=== PATIENT | female | born 1970 | race Caucasian/White ===

== ENCOUNTER → 2017-04-07 15:51 | Outpatient (CLI) | payer MEDICARE, MEDICAID, SELFPAY ==
--- NOTE | 2017-04-07 16:03 | MM_ITS ---
MM Dig screening mamm BI w/CAD CAD Screening COMPARISON: Digital mammograms 10/26/2014 and 02/06/2013 INDICATION: There is no personal or family history of breast cancer TECHNIQUE: Standard CC and MLO images were obtained. R2 CAD reviewed. FINDINGS: The breasts are composed primarily of fat with minimal scattered fibroglandular densities in each breast. There are tiny stable benign-appearing nodular densities near the axillary tails of each breast. There is no suspicious lesion and there are no suspicious microcalcifications. IMPRESSION: Fatty type breast parenchyma with no suspicious lesion seen BI-RADS Category: 2 Benign Finding(s) RECOMMENDED FOLLOW-UP: 1YR - 1 YEAR FOLLOW-UP (A letter has been sent to the patient regarding results of the study.)
== END ==
PROVIDERS: Family Provider Family Medicine; PCP Family Medicine; Visit Provider Nurse Practitioner Family
DX: Z12.31 Encounter for screening mammogram for malignant neoplasm of breast (principal)
CPT/HCPCS: 77067

== ENCOUNTER → 2017-10-01 13:11 | Outpatient (CLI) | payer MEDICARE, MEDICAID, SELFPAY | PROVIDERS: PCP Family Medicine; Visit Provider Family Medicine | DX: R40.0 Somnolence (principal); R06.83 Snoring; E66.9 Obesity, unspecified; G47.30 Sleep apnea, unspecified | CPT/HCPCS: G0399 ==

== ENCOUNTER → 2017-12-24 14:56 | Outpatient (CLI) | payer MEDICARE, MEDICAID, SELFPAY ==
--- NOTE | 2017-12-24 15:03 | XR_ITS ---
XR calcaneus RT min 2V CLINICAL INDICATION: Pain, heel pain ITS.REASON: TENDONITIS ORDERING PHYSICIAN: Cash Burton MD PATIENT AGE: 47 years Comparison: None FINDINGS: 3 views of the calcaneus show no fracture or dislocation. No lytic or blastic change. There is a fairly prominent calcaneal spur at 9 mm without obvious erosive change. IMPRESSION: Calcaneal spur otherwise negative right heel
== END ==
PROVIDERS: PCP Family Medicine; Visit Provider Family Medicine
DX: M76.61 Achilles tendinitis, right leg (principal)
CPT/HCPCS: 73650

== ENCOUNTER → 2018-04-12 15:47 | Outpatient (CLI) | payer MEDICARE, SELFPAY ==
--- NOTE | 2018-04-12 15:55 | MM_ITS ---
MM Dig screening mamm BI w/CAD CAD Screening COMPARISON: Digital mammograms with CAD 04/07/2017 and 10/26/2014 INDICATION: There is no personal or family history of breast cancer TECHNIQUE: Standard CC and MLO images were obtained. R2 CAD reviewed. FINDINGS: The breasts are composed primarily of fat. With minimal scattered fibro glandular densities in each breast. There is a mole marker left breast. There is a stable benign-appearing nodular density near the axillary tail left breast likely a low-lying node. There is no suspicious lesion and no suspicious microcalcifications. IMPRESSION: Fibrofatty parenchyma with no suspicious lesion seen BI-RADS Category: 2 Benign Finding(s) RECOMMENDED FOLLOW-UP: 1YR - 1 YEAR FOLLOW-UP (A letter has been sent to the patient regarding results of the study.)
== END ==
PROVIDERS: PCP Family Medicine; Visit Provider Nurse Practitioner Family
DX: Z12.31 Encounter for screening mammogram for malignant neoplasm of breast (principal)
CPT/HCPCS: 77067

== ENCOUNTER → 2018-05-18 13:36 | Outpatient (CLI) | payer MEDICARE, SELFPAY ==
--- NOTE | 2018-05-18 13:40 | XR_ITS ---
XR foot wt bearing LT 3V HISTORY: Left foot pain ITS.REASON: pain ORDERING PHYSICIAN: Rachel Covarrubias DPM PATIENT AGE: 47 years COMPARISON: None FINDINGS: No fracture or dislocation. No lytic or blastic change. There is normal mineralization.. There is flexion deformity of the second toe. A small calcaneal spurs present at 7 mm and there is a small enthesophyte at the Achilles region. IMPRESSION: Flexion deformity second toe
--- NOTE | 2018-05-18 13:40 | XR_ITS ---
XR foot wt bearing RT 3V HISTORY: ITS.REASON: pain ORDERING PHYSICIAN: Rachel Covarrubias DPM PATIENT AGE: 47 years COMPARISON: None FINDINGS: Minimal hypertrophic changes are present along the dorsal and proximal aspect of the navicular. Small calcaneal spur is noted at 7 mm. No fracture or dislocation. No lytic or blastic change. IMPRESSION: Mild degenerative changes of the navicular
== END ==
PROVIDERS: PCP Family Medicine; Visit Provider Podiatrist
DX: M79.672 Pain in left foot (principal); M79.671 Pain in right foot
CPT/HCPCS: 73630

== ENCOUNTER 2018-07-06 13:00 | Outpatient (RCR) | payer MEDICARE, MEDICAID, SELFPAY ==
--- NOTE | 2018-06-08 14:10 | HMH.PTOPEV ---
PT Outpatient Evaluation Rehab PT Outpatient Evaluation Start: 06/08/18 13:57 Freq: Status: Active Protocol: Document 06/08/18 13:58 DEDRA (Rec: 06/08/18 14:09 [email or web address] [id number]) Electronically Signed By Gabino Park, PT 06/08/18 13:58 Outpatient Therapy Subjective History Subjective History Patient is a 48 year old female presenting to outpatient PT with reports of R heel pain of insidious onset [facility]. Pt reports most recently taking a round of oral sterioids that have helped reduce symptom. Pt reports non-compliance with HEP given by MD. Most recent diagnostics indicate R foot/ ankle arthritis and sub- achilles bone spur. Comorbidities include elevated BMI, diabetes and chronic depression. Chief Complaint Pain,Stiff Symptom Type Ache,Sharp,Shooting Symptoms Relieved By Prescription Meds Symptoms Aggravated By Standing,Physical Activity, Walking Prior Functional Limitations None Current Functional Limitations Housework,Standing,Recreation Activity,Walking,Stairs, Balance Symptom Description Intermittent Level of pain today (0-10) 0 Pain scale - at its best (0-10) 0 Pain scale - at its worst (0-10) 6 Ankle/Foot Eval Gait Observation General Gait Pattern Observation Antalgic Gait,Decrease Weight Bear (R) Palpation Tenderness right Ankle/Foot Palpation Findings Tenderness Ankle/Foot Palpation Overall Comment distal/lateral achilles insertion ROM Ankle/Foot Dorsiflexion w/Knee Extended 0 Active Range Motion (degrees) Ankle/Foot Plantar Flexion Active Range 60 of Motion (degrees) Ankle/Foot Eversion Active Range of WNL Motion (degrees) Ankle/Foot Inversion Active Range of WNL Motion (degrees) Ankle/Foot ROM Limitations Soft Tissue Tightness Great Toe ROM Reason Not Measured Within Functional Limits MMT Ankle Dorsiflexion Strength Grade 5 Normal Ankle Plantarflexion Strength Grade 5 Normal Foot Eversion Strength Grade 5 Normal Foot Inversion Strength Grade 5 Normal Special Tests Ankle Anterior Drawer Test Negative Right Ankle Eversion Test Negative Right Ta
== END 2018-07-06 13:05 | disposition home or self-care (01) ==
LOC: PT 13:00
PROVIDERS: Visit Provider Podiatrist
DX: M76.61 Achilles tendinitis, right leg (principal)
CPT/HCPCS: 97010; 97014; 97033; 97035; 97110; 97163; 97760; G0283

== ENCOUNTER 2018-08-18 14:36 | Outpatient (RCR) | payer MEDICARE, MEDICAID, SELFPAY ==
--- NOTE | 2018-08-18 15:28 | HMH.PTOPEV ---
PT Outpatient Evaluation Rehab PT Outpatient Evaluation Start: 08/18/18 14:59 Freq: Status: Active Protocol: Document 08/18/18 14:59 DEDRA (Rec: 08/18/18 15:28 DEDRA [id number]) Electronically Signed By Gabino Park, PT 08/18/18 14:59 Outpatient Therapy Subjective History Subjective History Patient is a 48 year old female presenting to outpatient PT with reports of R heel pain starting approximately 02/2018 of insidious onset. Pt had one previous episode of PT that provided some relief. Pt reports hx of severe depression that has affected compliance with HEP. Comorbidites include diabetes and elevated BMI. Chief Complaint Pain,Stiff Symptom Type Ache,Sharp,Numbness Symptoms Relieved By Rest/Positioning,Ice, Prescription Meds Symptoms Aggravated By Standing,Physical Activity, Walking Prior Functional Limitations None Current Functional Limitations Standing,Recreation Activity, Walking,Stairs,Balance Symptom Description Constant but Variable Level of pain today (0-10) 0 Pain scale - at its best (0-10) 0 Pain scale - at its worst (0-10) 3 Ankle/Foot Eval Gait Observation General Gait Pattern Observation Decrease Weight Bear (R) Assistive Device Ambulation Assistive Device None Palpation Tenderness right Ankle/Foot Palpation Findings Tenderness Ankle/Foot Palpation Overall Comment Distal/Lateral achilles tendon ROM Ankle/Foot Dorsiflexion w/Knee Extended -4 Active Range Motion (degrees) Ankle/Foot Dorsiflexion w/Knee Extended 0 Passive Range (degrees) Ankle/Foot Plantar Flexion Active Range 60 of Motion (degrees) Ankle/Foot Eversion Active Range of 25 Motion (degrees) Ankle/Foot Inversion Active Range of 35 Motion (degrees) Great Toe ROM Reason Not Measured Within Functional Limits Accessory Movements Ankle Accessory Movements that Elicit Talus Dorsal [place],Talus Symptoms Ventral [place] MMT right Ankle Dorsiflexion Strength Grade 5 Normal Ankle Plantarflexion Strength Grade 5 Normal Foot Eversion Strength Grade 5 Normal Foot Inversion Strength Grade 5 Normal Special Tests Ankle Anterior Drawer Test Negative Right Ankle Eversion Test Negative Right Talar Tilt Test Negative Right Ankle Posterior Drawer Test Negative Right
== END 2018-08-18 14:45 | disposition home or self-care (01) ==
LOC: PT 14:36
PROVIDERS: PCP Family Medicine; Visit Provider Podiatrist
DX: M76.61 Achilles tendinitis, right leg (principal)
CPT/HCPCS: 97163

== ENCOUNTER → 2019-03-27 14:49 | Outpatient (CLI) | payer MEDICARE, MEDICAID, SELFPAY ==
[2019-03-27 17:48] VITALS: BMI 43.7
== END ==
PROVIDERS: PCP Family Medicine; Visit Provider Nurse Practitioner Family
DX: Z71.3 Dietary counseling and surveillance (principal); E11.9 Type 2 diabetes mellitus without complications
CPT/HCPCS: 97802

== ENCOUNTER → 2019-04-24 13:24 | Outpatient (POV) | payer MEDICARE, MEDICAID, SELFPAY | PROVIDERS: PCP Specialist; Visit Provider Specialist | DX: R29.898 Other symptoms and signs involving the musculoskeletal system (principal) | CPT/HCPCS: 95908 ==

== ENCOUNTER → 2019-06-17 10:47 | Outpatient (CLI) | payer MEDICARE, MEDICAID, SELFPAY ==
[2019-06-17 10:51] LABS: Adenovirus,PCR Not Detected (NotDetected); Bordetella Pertussis Not Detected (NotDetected); Chlamydophila Pneumoniae, PCR Not Detected (NotDetected); Coronavirus 19, PCR Not Detected (NotDetected); Coronavirus 229E Not Detected (NotDetected); Coronavirus NL63 Not Detected (NotDetected); Coronavirus OC43 Not Detected (NotDetected); Coronovirus HKU1,PCR Not Detected (NotDetected); Human Metapneumovirus Not Detected (NotDetected); Influenza A, PCR Not Detected (NotDetected); Influenza AH1, 2009 Not Detected (NotDetected); Influenza AH1, PCR Not Detected (NotDetected); Influenza AH3,PCR Not Detected (NotDetected); Influenza B, PCR Not Detected (NotDetected); Mycoplasma Pneumoniae, PCR Not Detected (NotDected); Parainfluenza 1, PCR Not Detected (NotDetected); Parainfluenza 2, PCR Not Detected (NotDetected); Parainfluenza 3, PCR Not Detected (NotDetected); Parainfluenza 4, PCR Not Detected (NotDetected); Respiratory Syncytial Virus Not Detected (NotDetected); Rhinovirus/Enterovirus Not Detected (NotDetected)
== END ==
PROVIDERS: Visit Provider Internal Medicine Gastroenterology
DX: Z01.818 Encounter for other preprocedural examination (principal)
CPT/HCPCS: 87581; 87633; 87798

== ENCOUNTER → 2019-11-01 14:26 | Outpatient (CLI) | payer MEDICARE, MEDICAID, SELFPAY | PROVIDERS: PCP Family Medicine; Visit Provider Family Medicine | DX: G47.30 Sleep apnea, unspecified (principal); G47.10 Hypersomnia, unspecified; E66.9 Obesity, unspecified; R03.0 Elevated blood-pressure reading, without diagnosis of hypertension | CPT/HCPCS: G0399 ==

== ENCOUNTER → 2019-12-18 11:06 | Outpatient (CLI) | payer MEDICARE, MEDICAID, SELFPAY ==
[2019-12-18 13:52] LABS: Coronavirus 19 IgG Antibody Negative (Negative); Coronavirus 19 IgM Antibody Negative (Negative)
== END ==
PROVIDERS: Visit Provider Surgery
DX: Z03.818 Encounter for observation for suspected exposure to other biological agents ruled out (principal)
CPT/HCPCS: 36415; 86328

== ENCOUNTER → 2019-12-19 20:02 | Outpatient (CLI) | payer MEDICARE, MEDICAID, SELFPAY | PROVIDERS: PCP Family Medicine; Visit Provider Specialist | DX: G47.33 Obstructive sleep apnea (adult) (pediatric) (principal) | CPT/HCPCS: 95810 ==

== ENCOUNTER 2019-12-22 21:12 | Emergency (ER) | payer MEDICARE, MEDICAID, SELFPAY ==
[2019-12-22 21:13] VITALS: BP 145/84; PULSE 83; RESP 16; TEMP 37; O2SAT 99; BMI 46.3
--- NOTE | 2019-12-22 22:03 | HMH.EDSKAF ---
ED Disposition Clinical Impression: Cellulitis, Abscess of skin or subcutaneous tissue Disposition: Home, Self-Care Condition on Discharge: Good Instructions: DI for Skin Abscess, Cellulitis Prescriptions: Sulfamethoxazole/Trimethoprim [Bactrim DS tablet] 1 each PO BID 10 Days #20 tab Transmission Status: Pending to [id number] Referrals: Cash Burton MD [Primary Care Provider] - - Critical Care Critical Care Time: No Attestation: On 12/22/19, the high probability of a clinically significant, sudden or life threatening deterioration of the following system(s) required my full and direct attention, intervention and personal management. The time I documented below is in addition to time spent performing reported procedures but includes the following listed in this critical care notation. Medical Decision Making - Medical Records Medical records reviewed: Yes: I reviewed the patient's medical records. - Chirag Inquiry Pt receiving controlled substance: No Vital Signs: 12/22/19 21:13 Temperature 98.6 F Temperature Source Oral Pulse Rate [Left Radial] 83 Respiratory Rate 16 Blood Pressure [Right Arm] 145/84 H Blood Pressure Mean [Right Arm] 104 Blood Pressure Source [Right Arm] Automatic Cuff Blood Pressure Position [Right Arm] Sitting 02 Sat by Pulse Oximetry 99 Oxygen Delivery Method Room Air - Lab Data Lab results reviewed: Yes: I reviewed the patient's lab results. Skin/Abscess/FB HPI - General Chief complaint: Skin/Abscess/Foreign Body Stated complaint: Cat scratched top of r breast, red, painful Time Seen by Provider: 12/22/19 22:00 Mode of Arrival: Ambulatory Source of Information: Patient Limitations: No Limitations Description of Symptoms (Recalled from ER Triage Doc. by RN): Cat scratched right breast 6 weeks ago. Pt c/o dime sized scab and and surrounding redness to right breast. No drainage present. Pt denies fever or N/V/D. - History of Present Illness HPI narrative: 49-year-old female presents to the ED after getting scratched by a cat a few days prior. She now has an area of erythema on her upper left upper right breast. Patient denies any acute pain. But she did state that it started draining yesterday. Patient denies any other acute symptoms.Patient denies any recent cough or shortness of breath, patient denies any sore throat or headache, patient denies any loss of taste or smell, patient denies any malaise or fatigue, patient denies any abdominal pain nausea vomiting or diarrhea. - Related Data Home Medications Medication Instructions Recorded Confirmed levocetirizine 5 mg tablet 5 mg PO DAILY #90 tab 05/30/18 12/22/19 omeprazole 20 mg capsule,delayed 20 mg PO DAILY PRN 05/30/18 12/22/19 release levothyroxine 75 mcg capsule 75 mcg PO DAILY 07/12/18 12/22/19 paroxetine HCl 37.5 mg 37.5 mg PO DAILY #30 tab 07/12/18 12/22/19 tablet,extended release 24 hr lamotrigine 100 mg tablet 100 mg PO DAILY 04/11/19 12/22/19 Iron,Carb/Vit C/Vit B12/Folic 180 mg PO DAILY 05/09/19 12/22/19 [Iron 100 Plus Tablet] cholecalciferol (vitamin D3) 125 15,000 unit PO ONCE cap 08/02/19 12/22/19 mcg (5,000 unit) capsule Previous Rx's Medication Instructions Recorded meloxicam 7.5 mg tablet 7.5 mg PO DAILY 30 Days #30 tab 11/01/19 Sulfamethoxazole/Trimethoprim 1 each PO BID 10 Days #20 tab 12/22/19 [Bactrim DS tablet] Allergies Allergy/AdvReac Type Severity Reaction Status Date / Time No Known Allergies Allergy Verified 11/29/19 10:33 [facility] History - Hepatitis A Screen Drug use history?: No High risk sexual behaviors?: No History of sexually transmitted infection?: No Currently employed?: No Childcare worker?: No Do you have indoor plumbing?: Yes Do you have electricity?: Yes Attestation statement:: This patient has been screened for Hepatitis A risk factors. I have reviewed the patient's past medical history: Yes Medical History: Reports:
[2019-12-22 22:17] VITALS: BP 148/72; PULSE 88; RESP 16; TEMP 37; O2SAT 99
== END 2019-12-22 22:19 | disposition home or self-care (01) ==
PROVIDERS: Emergency Provider Family Medicine; PCP Family Medicine
DX: N61.1 Abscess of the breast and nipple (principal); K21.9 Gastro-esophageal reflux disease without esophagitis; E11.9 Type 2 diabetes mellitus without complications; F41.8 Other specified anxiety disorders
CPT/HCPCS: 96372; 99281

== ENCOUNTER → 2020-01-01 10:14 | Outpatient (CLI) | payer MEDICARE, MEDICAID, SELFPAY ==
[2020-01-01 11:27] LABS: Coronavirus 19 IgG Antibody Negative (Negative); Coronavirus 19 IgM Antibody Negative (Negative)
== END ==
PROVIDERS: Visit Provider Surgery
DX: Z01.818 Encounter for other preprocedural examination (principal); Z13.810 Encounter for screening for upper gastrointestinal disorder; Z12.11 Encounter for screening for malignant neoplasm of colon
CPT/HCPCS: 36415; 86328

== ENCOUNTER 2020-01-02 08:11 | Day surgery (SDC) | payer MEDICARE, MEDICAID, SELFPAY ==
[2019-12-27 13:14] VITALS: BMI 46.3
[2019-12-27 13:43] VITALS: BMI 46.3
[2020-01-02 08:38] VITALS: BP 139/67; PULSE 79; RESP 18; TEMP 36.5; O2SAT 100
[2020-01-02 08:40] LABS: Urine Pregnancy, HCG Qual. Negative (Negative)
--- NOTE | 2020-01-02 08:56 | HMH.ANESCL ---
[facility] Anesthesia Checklist - Patient Identification Patient Identification: Arm Band - Structural Data Admitted From: Home Planned Operative Procedure/s: egd/colonoscopy Consent for Planned Operative Procedure(s) Verified: Yes Verified Documents: Surgical Consent, History and Physical - NPO Status Verified Time NPO: 00:00 - Additional verifications Anesthesia Reactions: No - Airway Assessment C-Spine Mobility Assessed: Yes (mp2) TMJ Mobility Assessed: Yes Dentition: Good Dentition - Neurological Assessment Level of Consciousness: Awake, Alert - Anesthesia Plan Anesthesia Risk discussed: Yes Anesthesia Plan: Verified ASA Class: III Anesthesia Type: MAC [facility] History I have reviewed the patient's past medical history: Yes Medical History: Reports:: Anxiety, Depression, Diabetes Mellitus Type 2, Gastroesophageal Reflux Disease(GERD) Denies:: Cancer, Diabetes Mellitus Type 1, Internal Pacemaker, MRSA, Seizures *Have you ever received a pneumonia vaccine?: No *Have you received a flu vaccine this season?: No Other Medical History: Reports: Anemia, Sinus Problems, Thyroid Disease, Other (obese) Anesthesia experience/problems:: nac Laterality Cases: Bilateral: Tonsillectomy Other Surgeries: Yes: Colonoscopy, Tubal Ligation. No: Pacemaker Amputation: No Fractures: Yes - *Social History Last grade of school completed: Some college Smoking Status: Never smoker Alcohol Intake: never Substance Use Type: denies use *Occupational Status:: disabled Housing: house Household Members: none *Travel in the last 8 weeks: None - Psychiatric History Pschychiatric History:: Reports:: Anxiety, Depression Family Hx:: Hyperlipidemia, Hypertension, Coronary Artery Disease
[2020-01-02 08:58] LABS: POC Glucose,Bedside 101 (70-110)
[2020-01-02 09:01] VITALS: O2SAT 100
[2020-01-02 09:35] VITALS: BP 129/78; PULSE 76; RESP 12; TEMP 36.5; O2SAT 93
--- NOTE | 2020-01-02 09:39 | HMH.SCOPE ---
- Procedure: Date: 01/02/20 Patient Date of :: 1970 Procedure Performed:: Esophagogastroduodenoscopy with biopsy Limited flexible sigmoidoscopy with polypectomy Indications:: Anemia Performing Provider:: Cade Hartman MD Referring Provider:: Dr. Burton Sedation:: Monitored anesthesia care Procedure:: After informed consent was obtained the patient was taken to the endoscopy suite. Sedation ensued after the patient was transferred to the left lateral decubitus position. Pulse, blood pressure, and oxygen saturation were monitored throughout the procedure. The endoscope was advanced beyond the duodenal bulb. Retroflexion within the gastric lumen was accomplished. The gastroscope was carefully removed. Digital rectal exam revealed no significant abnormality. The colonoscope was placed in position. Bowel preparation was exceptionally poor. A large complex pedunculated polyp at 25 cm was seen and excised by way of snare polypectomy. Further advancement was deemed unwarranted and unsafe secondary to severe limitations in preparation. The colonoscope was carefully removed and the patient was transferred to recovery in stable condition. Please see findings and specimens below for detail. Findings:: Gastroesophageal junction at 36 cm Sessile esophageal polyps around 26 cm Inflammation of gastroesophageal junction Streaking gastritis distally Bowel preparation exceptionally poor Large complex pedunculated polyp at 25 cm Specimens:: Antral biopsy Gastroesophageal junction biopsy Distal esophageal biopsy at 33 cm Sessile esophageal polyp at 26 cm Large complex pedunculated colon polyp at 25 cm (snare) Recommendations:: Continue proton pump inhibition Follow-up pathology Repeat colonoscopy with extended bowel preparation in approximately 1 month Complications:: Poor bowel preparation Estimated blood obtained (mL): 1
[2020-01-02 09:45] VITALS: BP 143/66; PULSE 73; RESP 16; O2SAT 95
[2020-01-02 09:55] VITALS: BP 157/89; PULSE 68; RESP 16; O2SAT 100
[2020-01-02 10:05] VITALS: BP 146/88; PULSE 64; RESP 16; TEMP 36.5; O2SAT 100
== END 2020-01-02 10:13 | disposition home or self-care (01) ==
LOC: OUTP 08:13
PROVIDERS: PCP Family Medicine; Visit Provider Surgery
PROC: 0DJ08ZZ Inspection of Upper Intestinal Tract, Via Natural or Artificial Opening Endoscopic (ICD-10-PCS; CPT 43235; principal; 2020-01-02 09:00)
DX: K22.8 Other specified diseases of esophagus (principal); K29.60 Other gastritis without bleeding; K63.5 Polyp of colon; D64.9 Anemia, unspecified; E11.9 Type 2 diabetes mellitus without complications; F41.9 Anxiety disorder, unspecified; F32.9 Major depressive disorder, single episode, unspecified; K21.9 Gastro-esophageal reflux disease without esophagitis; E66.9 Obesity, unspecified; E07.9 Disorder of thyroid, unspecified
CPT/HCPCS: 43239; 45385; 81025; 82962; 88305; 88312

== ENCOUNTER → 2020-02-16 11:04 | Outpatient (CLI) | payer MEDICARE, MEDICAID, SELFPAY ==
--- NOTE | 2020-02-16 11:08 | MM_ITS ---
PROCEDURE: MM DIG SCREENING MAMM BI W/CAD Digital Breast Tomosynthesis Included CLINICAL INDICATION: SCREENING There is no personal or family history of breast cancer COMPARISON: [facility] DIG MAMM-SCREEN CELESTINO from 10/26/2014 [facility] MM Dig screening mamm BI w/CAD from 04/07/2017 [facility] MM Dig screening mamm BI w/CAD from 04/12/2018 TECHNIQUE: Standard CC and MLO images and 3D Tomosynthesis was obtained. R2 CAD reviewed. FINDINGS: Scattered fibroglandular densities are seen throughout both breast and the findings are bilateral and symmetrical. There is a nodular density near the axillary tail left breast likely a low-lying node. There is no suspicious lesion in either breast and no suspicious microcalcifications. IMPRESSION: Fibrofatty parenchyma with no suspicious lesions seen BI-RAD Category: 2 Benign Finding(s) FOLLOW-UP: 1YR 1 Year Follow-up (A letter has been sent to the patient regarding results of the study.) Dictated by: Dr. Jose Oreilly MD 02/18/2020 12:51 Dr. Jose Oreilly MD in [place] 02/18/2020 12:51
== END ==
PROVIDERS: PCP Family Medicine; Visit Provider Family Medicine
DX: Z12.31 Encounter for screening mammogram for malignant neoplasm of breast (principal)
CPT/HCPCS: 77063; 77067

== ENCOUNTER → 2020-02-21 09:36 | Outpatient (CLI) | payer MEDICARE, MEDICAID, SELFPAY ==
[2020-02-21 11:55] LABS: Coronavirus 19 IgG Antibody Negative (Negative); Coronavirus 19 IgM Antibody Negative (Negative)
== END ==
PROVIDERS: Visit Provider Surgery
DX: Z01.812 Encounter for preprocedural laboratory examination (principal); Z11.52 Encounter for screening for COVID-19; Z12.11 Encounter for screening for malignant neoplasm of colon
CPT/HCPCS: 36415; 86328

== ENCOUNTER 2020-02-22 08:01 | Day surgery (SDC) | payer MEDICARE, MEDICAID, SELFPAY ==
[2020-02-20 13:22] VITALS: BMI 45.6
[2020-02-22 08:16] VITALS: BP 131/67; PULSE 67; RESP 18; TEMP 36.3; O2SAT 99
[2020-02-22 08:25] LABS: Urine Pregnancy, HCG Qual. Negative (Negative)
[2020-02-22 08:32] VITALS: O2SAT 99
[2020-02-22 08:36] LABS: POC Glucose,Bedside 103 (70-110)
--- NOTE | 2020-02-22 08:54 | HMH.SCOPE ---
- Procedure: Date: 02/22/20 Patient Date of :: 1970 Procedure Performed:: Flexible sigmoidoscopy (limited) Indications:: Short-term repeat colonoscopy with extended bowel preparation secondary to recent aborted procedure with concomitant excision of large polyp at 25 cm. Performing Provider:: Cade Hartman MD Referring Provider:: . Sedation:: Monitored anesthesia care Procedure:: After informed consent was obtained the patient was taken to the endoscopy suite. Sedation ensued after the patient was transferred to the left lateral decubitus position. Pulse, blood pressure, and oxygen saturation were monitored throughout the procedure. Digital rectal exam revealed no significant abnormality. The colonoscope was placed in position. A large amount of formed stool was encountered within the sigmoid colon. Multiple attempts at evacuating stool were unsuccessful and the procedure was aborted. The colonoscope was carefully removed and the patient was transferred to recovery in stable condition. Please see findings and specimens below for detail. Findings:: Extremely poor bowel preparation (not improved versus prior evaluation despite extended bowel preparation) Specimens:: None Recommendations:: Gastroenterology consultation for evaluation for likely severe chronic constipation. Repeat colonoscopy deferred to the gastroenterology service. Complications:: Poor bowel preparation Estimated blood obtained (mL): 0
[2020-02-22 08:55] VITALS: BP 108/51; PULSE 73; RESP 18; TEMP 36.5; O2SAT 96
[2020-02-22 09:05] VITALS: BP 103/47; PULSE 67; RESP 18; O2SAT 100
[2020-02-22 09:19] VITALS: BP 107/58; PULSE 60; RESP 18; O2SAT 100
--- NOTE | 2020-02-22 09:37 | P.PN_ITS ---
[facility] Anesthesia Checklist - Patient Identification Patient Identification: Arm Band - Structural Data Admitted From: Home Planned Operative Procedure/s: colonoscopy Consent for Planned Operative Procedure(s) Verified: Yes Verified Documents: Surgical Consent, History and Physical - NPO Status Verified Time NPO: 00:00 - Additional verifications Anesthesia Reactions: No - Airway Assessment C-Spine Mobility Assessed: Yes (mp2) TMJ Mobility Assessed: Yes Dentition: Good Dentition - Neurological Assessment Level of Consciousness: Awake, Alert - Anesthesia Plan Anesthesia Risk discussed: Yes Anesthesia Plan: Verified ASA Class: III Anesthesia Type: MAC [facility] History I have reviewed the patient's past medical history: Yes Medical History: Reports:: Anxiety, Depression, Diabetes Mellitus Type 2, Gastroesophageal Reflux Disease(GERD) Denies:: Cancer, Diabetes Mellitus Type 1, Internal Pacemaker, MRSA, Seizures *Have you ever received a pneumonia vaccine?: No *Have you received a flu vaccine this season?: Yes Other Medical History: Reports: Anemia, Sinus Problems, Thyroid Disease, Other (LEONARD) Anesthesia experience/problems:: nac Laterality Cases: Bilateral: Tonsillectomy Other Surgeries: Yes: Colonoscopy, EGD, Tubal Ligation. No: Pacemaker Amputation: No Fractures: Yes - *Social History Last grade of school completed: Some college Smoking Status: Never smoker Alcohol Intake: never Substance Use Type: denies use *Occupational Status:: disabled Housing: house Household Members: none *Travel in the last 8 weeks: None - Psychiatric History Pschychiatric History:: Reports:: Anxiety, Depression Family Hx:: Hyperlipidemia, Hypertension, Coronary Artery Disease
== END 2020-02-22 09:26 | disposition home or self-care (01) ==
LOC: OUTP 08:02
PROVIDERS: PCP Family Medicine; Visit Provider Surgery
PROC: 0DJD8ZZ Inspection of Lower Intestinal Tract, Via Natural or Artificial Opening Endoscopic (ICD-10-PCS; CPT 45330; principal; 2020-02-22 08:30)
DX: Z86.010 Personal history of colon polyps (principal); E11.9 Type 2 diabetes mellitus without complications; Z82.49 Family history of ischemic heart disease and other diseases of the circulatory system; F41.9 Anxiety disorder, unspecified; F32.9 Major depressive disorder, single episode, unspecified; K21.9 Gastro-esophageal reflux disease without esophagitis; E07.9 Disorder of thyroid, unspecified; D64.9 Anemia, unspecified; Z79.899 Other long term (current) drug therapy
CPT/HCPCS: 45330; 81025; 82962

== ENCOUNTER → 2020-05-27 13:55 | Outpatient (POV) | payer MEDICARE, MEDICAID, SELFPAY | PROVIDERS: PCP Family Medicine; Visit Provider Nurse Practitioner Family | DX: Z00.00 Encounter for general adult medical examination without abnormal findings (principal) ==

== ENCOUNTER 2020-06-08 02:23 | Emergency (ER) | payer MEDICARE, MEDICAID, SELFPAY ==
[2020-06-08 02:24] VITALS: BP 151/83; PULSE 79; RESP 14; TEMP 36.6; O2SAT 99; BMI 46.3
--- NOTE | 2020-06-08 02:38 | CT_ITS ---
PROCEDURE INFORMATION: Exam: CT Abdomen And Pelvis With Contrast Exam date and time: 06/08/2020 2:38 AM Age: 50 years old Clinical indication: Abdominal pain; Lower; Patient HX: Vomiting for past 3 weeks off and on but has increased. Abd tenderness; Additional info: Vomitting TECHNIQUE: Imaging protocol: Computed tomography of the abdomen and pelvis with contrast. Radiation optimization: All CT scans at this facility use at least one of these dose optimization techniques: automated exposure control; mA and/or kV adjustment per patient size (includes targeted exams where dose is matched to clinical indication); or iterative reconstruction. Contrast material: ISOVUE; Contrast volume: 75 ml; Contrast route: IV; COMPARISON: No relevant prior studies available. FINDINGS: Liver: There is diffuse hypoattenuation of the liver compatible with moderate hepatic steatosis. Gallbladder and bile ducts: Normal. No calcified stones. No ductal dilation. Pancreas: Normal. No ductal dilation. Spleen: Multiple calcific densities spleen are likely related to prior granulomatous process. Adrenal glands: Normal. No mass. Kidneys and ureters: Normal. No hydronephrosis. Stomach and bowel: Unremarkable. No obstruction. No mucosal thickening. Appendix: The appendix is not definitely identified, but there are no primary or secondary CT findings to suggest a diagnosis of acute appendicitis. Intraperitoneal space: Unremarkable. No free air. No significant fluid collection. Vasculature: Unremarkable. No abdominal aortic aneurysm. Lymph nodes: Mild stranding and shotty retroperitoneal nodes at the 3rd portion of the duodenum are present, and could represent duodenitis. Urinary bladder: Unremarkable as visualized. Reproductive: Unremarkable as visualized. Bones/joints: Unremarkable. No acute fracture. Soft tissues: Normal. IMPRESSION: Mild stranding and shotty retroperitoneal nodes at the 3rd portion of the duodenum are present, and could represent duodenitis.
[2020-06-08 02:53] LABS: Basophils # 0.1 K/mm3 (0-0.2); Basophils % 0.6 % (0.1-2.0); Eosinophils # 0.2 K/mm3 (0.0-0.4); Eosinophils % 1.2 % (0.1-12.0); Hematocrit 37.2 % (37.0-47.0); Hemoglobin 12.2 g/dL (12.2-16.2); Lymphocytes # 2.5 K/mm3 (0.7-4.5); Lymphocytes % 20.4 % (10-50); Mean Corpuscular HGB Conc 32.9 g/dL (31.8-35.4); Mean Corpuscular Hemoglobin 27.1 pg (27.0-31.2); Mean Corpuscular Volume 82.4 fl (81-99); Mean Platelet Volume 7.9 fl (7.4-10.4); Monocytes # 0.7 K/mm3 (0.1-1.0); Monocytes % 5.8 % (1.7-9.3); Neutrophils # 8.7 K/mm3 (1.8-7.8); Neutrophils % 71.9 % (37.0-80.0); Platelet Count 309 K/mm3 (142-424); Red Blood Count 4.52 M/mm3 (4.20-5.40); Red Cell Distribution Width 14.6 % (11.5-17.5); White Blood Count 12.1 K/mm3 (4.8-10.8)
[2020-06-08 02:58] LABS: Alanine Aminotransferase 30 U/L (12-78); Albumin Level 4.2 g/dl (3.5-5.0); Albumin/Globulin Ratio 1.4 (1.1-1.8); Alkaline Phosphatase 98 U/L (38-126); Amylase 51 U/L (30-110); Aspartate Amino Transferase 32 U/L (14-36); Bilirubin,Total 0.6 mg/dl (0.2-1.3); Blood Urea Nitrogen 13 mg/dl (7-17); Calcium 9.3 mg/dl (8.4-10.2); Carbon Dioxide 27 mmol/L (22.0-30.0); Chloride 102 mmol/L (98-107); Creatinine Clearance Estimated 63 mL/min (50-200); Estimated Glomerular Filt Rate 66 ml/min (>60); GFR (African American) 80 ML/MIN (>60); Globulin 3.1 g/dL (1.3-3.2); Glucose 106 mg/dl (74-100); Lipase 64 U/L (23-300); Sodium 135 mmol/L (136-145); Total Protein,Serum 7.3 g/dl (6.3-8.2)
[2020-06-08 03:00] VITALS: BP 146/74; PULSE 69; O2SAT 100
[2020-06-08 03:03] LABS: C-Reactive Protein 24.1 mg/L (0-4)
[2020-06-08 03:17] LABS: Procalcitonin 0.069 ng/mL (0.0-2.0)
[2020-06-08 03:29] LABS: Erythrocyte Sedimentation Rate 48 mm/hr (0-30)
[2020-06-08 03:36] VITALS: BP 166/72; PULSE 65; O2SAT 99
--- NOTE | 2020-06-08 03:45 | HMH.EDNVD ---
ED Disposition Clinical Impression: Duodenitis Disposition: Home, Self-Care Condition on Discharge: Good Instructions: DI for Nausea -- Adult Additional Instructions: fluids and see pcp for follow up Referrals: Cash Burton MD [Primary Care Provider] - - Critical Care Critical Care Time: No Attestation: On 06/08/20, the high probability of a clinically significant, sudden or life threatening deterioration of the following system(s) required my full and direct attention, intervention and personal management. The time I documented below is in addition to time spent performing reported procedures but includes the following listed in this critical care notation. Medical Decision Making - Medical Records Medical records reviewed: Yes: I reviewed the patient's medical records. - Chirag Inquiry Pt receiving controlled substance: No Vital Signs: 06/08/20 02:24 06/08/20 03:00 06/08/20 03:36 Temperature 97.9 F Temperature Source Oral Pulse Rate 69 65 Pulse Rate [Right] 79 Respiratory Rate 14 Blood Pressure 146/74 H 166/72 H Blood Pressure [Right Arm] 151/83 H Blood Pressure Mean [Right Arm] 105 Blood Pressure Source Automatic Cuff 02 Sat by Pulse Oximetry 99 100 99 - Lab Data Lab results reviewed: Yes: I reviewed the patient's lab results. Lab Results 06/08/20 02:40: WBC 12.1 H, RBC 4.52, Hgb 12.2, Hct 37.2, MCV 82.4, MCH 27.1, MCHC 32.9, RDW 14.6, Plt Count 309, MPV 7.9, Neut % (Auto) 71.9, Lymph % (Auto) 20.4, Scott % (Auto) 5.8, Eos % (Auto) 1.2, Baso % (Auto) 0.6, Neut # (Auto) 8.7 H, Lymph # (Auto) 2.5, Scott # (Auto) 0.7, Eos # (Auto) 0.2, Baso # (Auto) 0.1, ESR 48 H 06/08/20 02:40: Sodium 135 L, Potassium 4.0, Chloride 102, Carbon Dioxide 27, Anion Gap 10.0, BUN 13, Creatinine 0.90, Estimated Creat Clear 63, Estimated GFR 66, Est GFR ( Amer) 80, Glucose 106 H, Calcium 9.3, Total Bilirubin 0.6, AST 32, ALT 30, Alkaline Phosphatase 98, C-Reactive Protein 24.1 H, Total Protein 7.3, Albumin 4.2, Globulin 3.1, Albumin/Globulin Ratio 1.4, Amylase 51, Lipase 64, Procalcitonin 0.069 Result diagrams: 06/08/20 02:40 06/08/20 02:40 Orders (Tests/Meds): ED MEDICATIONS Generic Name Dose Route Start Last Admin Trade Name Freq PRN Reason Stop Dose Admin Sodium Chloride 1,000 mls @ 999 mls/hr 06/08/20 02:45 06/08/20 02:44 Sod Chlor 0.9% 1000ml Bag IV 06/08/20 03:45 999 mls/hr .Q1H1M SOLOMON Administration Sodium Chloride 8 ml 06/08/20 02:40 Sodium Chloride 0.9% 10ml Vial IV 07/08/20 02:39 NEEDED PRN dilute pepcid Discontinued Medications Generic Name Dose Route Start Last Admin Trade Name Freq PRN Reason Stop Dose Admin Famotidine 20 mg 06/08/20 02:40 06/08/20 02:44 Famotidine 20mg/2ml Vial IV 06/08/20 02:41 20 mg ONCE ONE Administration Iopamidol 75 ml 06/08/20 03:25 06/08/20 03:26 Iopamidol-370 (76%);100ml Bottle IV 06/08/20 03:26 75 ml ONCE ONE Administration Ketorolac Tromethamine 30 mg 06/08/20 02:40 06/08/20 02:44 Ketorolac 30mg/Ml Vial IV 06/08/20 02:41 30 mg ONCE ONE Administration Metoclopramide HCl 10 mg 06/08/20 02:40 06/08/20 02:44 Metoclopramide Hcl 10mg/2ml Vial IVP 06/08/20 02:41 10 mg ONCE ONE Administration Ondansetron HCl 4 mg 06/08/20 02:40 06/08/20 02:44 Ondansetron 4mg/2ml Vial IV 06/08/20 02:41 4 mg ONCE ONE Administration Sodium Chloride 10 ml 06/08/20 03:25 06/08/20 03:25 Sodium Chloride 0.9% 10ml Syr (Rad Only) IV 06/08/20 03:26 10 ml ONCE ONE Administration ORDERS Category Date Time Status Urinalysis and Microscopic Stat Lab 06/08/20 02:38 Ordered - CT Data CT Scan: Abdomen, Pelvis Time Received: 05:[address] Reviewed: Yes: I have viewed the radiologist's interpretation Preliminary Findings: Abnormal (see report) Nausea/Vomiting/Diarrhea HPI - General Chief complaint: Nausea/Vomiting/Diarrhea Stated complaint: Vomiting,can't keep fo
[2020-06-08 05:41] VITALS: BP 142/72; PULSE 67; RESP 14; TEMP 36.6; O2SAT 99
== END 2020-06-08 05:43 | disposition home or self-care (01) ==
PROVIDERS: Emergency Provider Emergency Medicine; PCP Family Medicine
DX: K29.80 Duodenitis without bleeding (principal); F41.8 Other specified anxiety disorders; E11.9 Type 2 diabetes mellitus without complications; K21.9 Gastro-esophageal reflux disease without esophagitis; Z79.899 Other long term (current) drug therapy
CPT/HCPCS: 96374; 74177; 80053; 82150; 83690; 84145; 85025; 85651; 86140; 96365; 96375; 99282; J2405; Q9967

== ENCOUNTER → 2020-07-30 16:05 | Outpatient (POV) | payer MEDICARE, MEDICAID, SELFPAY | PROVIDERS: Visit Provider Dermatology | DX: Z00.00 Encounter for general adult medical examination without abnormal findings (principal) ==

== ENCOUNTER → 2020-08-27 13:10 | Outpatient (POV) | payer MEDICARE, MEDICAID, SELFPAY | PROVIDERS: Visit Provider Dermatology | DX: Z00.00 Encounter for general adult medical examination without abnormal findings (principal) ==

== ENCOUNTER → 2020-10-02 12:26 | Outpatient (CLI) | payer MEDICARE, MEDICAID, SELFPAY | PROVIDERS: Visit Provider Internal Medicine Gastroenterology | DX: Z01.812 Encounter for preprocedural laboratory examination (principal); Z20.822 Contact with and (suspected) exposure to COVID-19; Z13.810 Encounter for screening for upper gastrointestinal disorder | CPT/HCPCS: U0003 ==

== ENCOUNTER 2020-10-04 11:45 | Day surgery (SDC) | payer MEDICARE, MEDICAID, SELFPAY ==
[2020-10-01 13:46] VITALS: BMI 46.3
--- NOTE | 2020-10-04 12:02 | HMH.ANESCL ---
[facility] Anesthesia Checklist - Patient Identification Patient Identification: Arm Band - Structural Data Admitted From: Home Planned Operative Procedure/s: EGD Consent for Planned Operative Procedure(s) Verified: Yes - NPO Status Verified Time NPO: 00:00 - Additional verifications Anesthesia Reactions: No - Airway Assessment C-Spine Mobility Assessed: Yes TMJ Mobility Assessed: Yes Dentition: Good Dentition - Neurological Assessment Level of Consciousness: Awake Hx Seizures: No Numbness or tingling in extremities: No - Anesthesia Plan Anesthesia Risk discussed: Yes Anesthesia Plan: Verified ASA Class: III Anesthesia Type: MAC [facility] History I have reviewed the patient's past medical history: Yes Medical History: Reports:: Anxiety, Depression, Diabetes Mellitus Type 2, Gastroesophageal Reflux Disease(GERD) Denies:: Cancer, Diabetes Mellitus Type 1, Internal Pacemaker, MRSA, Seizures *Have you ever received a pneumonia vaccine?: No *Have you received a flu vaccine this season?: Yes Other Medical History: Reports: Anemia, Sinus Problems, Thyroid Disease, Other Anesthesia experience/problems:: None Laterality Cases: Bilateral: Tonsillectomy Other Surgeries: Yes: No Previous Surgery, Colonoscopy, EGD, Tubal Ligation. No: Pacemaker Amputation: No Fractures: No - *Social History Last grade of school completed: Some college Smoking Status: Never smoker Alcohol Intake: never Substance Use Type: denies use *Occupational Status:: disabled Housing: house Household Members: none *Travel in the last 8 weeks: None - Psychiatric History Pschychiatric History:: Reports:: Anxiety, Depression Family Hx:: Cancer, Hyperlipidemia, Hypertension
[2020-10-04 12:06] VITALS: BP 131/60; PULSE 81; RESP 16; TEMP 36.7; O2SAT 95
[2020-10-04 12:24] VITALS: O2SAT 99
--- NOTE | 2020-10-04 12:41 | P.PCN_ITS ---
[facility] Procedure Note Procedure Note:: Upper Endoscopy Procedure Report: Esophagogastroduodenoscopy with cold biopsies Endoscopost: Sea Merino II, MD Referring Physician: Cash Burton MD Date of Procedure: October 04, 2020 Equipment: Olympus GIF 190 standard upper endoscope Sedation: MAC sedation Indications: Mrs. Koroma is a 50-year-old female with iron deficiency anemia. She also is Hemoccult positive. She had attempted colonoscopy in December 2019 and had an exceedingly poor bowel preparation and large complex adenomatous poly p. She was taking meloxicam daily. She has laid off of fried foods and fast foods and her symptoms of nausea and daily vomiting have completely resolved. She reports no abdominal pain, heartburn, reflux, melena or hematochezia. She still drinks a little bit of carbonated beverage. She did have a CAT scan of the abdomen and pelvis that showed mild stranding and shotty retroperitoneal nodes at the third portion of the duodenum. Procedure: Prior to the procedure, a history and physical exam was performed, and patient's medications and allergies were reviewed. The risks, benefits and alternatives of the sedation and procedure were discussed with the patient. All questions were answered and informed consent was obtained. The patient was brought to the procedure room. Patient identification and proposed procedure were verified by the physician and the nurse. The patient was placed in a left lateral decubitus position and the scope was passed under direct vision. Throughout the p rocedure, the patient's blood pressure, pulse, and oxygen saturations were monitored continuously. The upper GI endoscopy was accomplished without difficulty. The patient tolerated the procedure well. Findings: The scope was passed directly into the upper esophagus and advanced to the third portion of the duodenum. The post bulbar duodenum and duodenal bulb were normal with normal mucosa and conniventes. Cold biopsies were taken from the post bulbar duodenum. The scope was withdrawn through a normal duodenal bulb and pylorus into the stomach. There was some mild linear reactive gastropa thy of the antrum. The remainder of the body and fundus of the stomach were grossly normal. Upon retroflexion there was no hiatal hernia. 2 biopsies were taken in the antrum and along the lesser curvature for histology to rule out gastritis and/or H pylori. The scope was then withdrawn into the esophagus. There was mildly serrated Z-line and biopsies were taken at the GE junction. The remainder of the esophageal mucosa was normal. Impression: 1. Very mild reactive gastropathy otherwise normal upper endoscopy Plan: I will follow-up the biopsies. There was no source for the patient's iron deficiency anemia and Hemoccult positive stool. I would recommend repeating colonoscopy with improved bowel preparation (Sutab tablet preparation).
[2020-10-04 12:45] VITALS: BP 128/74; PULSE 74; RESP 18; TEMP 36.2; O2SAT 97
[2020-10-04 12:55] VITALS: BP 122/73; PULSE 73; RESP 18; TEMP 36.2; O2SAT 100
[2020-10-04 13:05] VITALS: BP 135/79; PULSE 72; RESP 18; TEMP 36.2; O2SAT 99
[2020-10-04 13:15] VITALS: BP 128/68; PULSE 74; RESP 18; TEMP 36.2; O2SAT 99
[2020-10-04 15:33] LABS: POC Glucose,Bedside 104 (70-110)
== END 2020-10-04 13:15 | disposition home or self-care (01) ==
LOC: OUTP 11:47
PROVIDERS: PCP Family Medicine; Visit Provider Internal Medicine Gastroenterology
PROC: 0DJ08ZZ Inspection of Upper Intestinal Tract, Via Natural or Artificial Opening Endoscopic (ICD-10-PCS; CPT 43235; principal; 2020-10-04 12:30)
DX: D50.9 Iron deficiency anemia, unspecified (principal); Z86.010 Personal history of colon polyps; K31.9 Disease of stomach and duodenum, unspecified; E11.9 Type 2 diabetes mellitus without complications; F41.9 Anxiety disorder, unspecified; F32.9 Major depressive disorder, single episode, unspecified; K21.9 Gastro-esophageal reflux disease without esophagitis; E07.9 Disorder of thyroid, unspecified; Z80.9 Family history of malignant neoplasm, unspecified; Z82.49 Family history of ischemic heart disease and other diseases of the circulatory system; Z83.438 Family history of other disorder of lipoprotein metabolism and other lipidemia; Z79.899 Other long term (current) drug therapy
CPT/HCPCS: 43239; 82962; 88305

== ENCOUNTER → 2021-01-10 15:24 | Outpatient (CLI) | payer MEDICARE, MEDICAID, SELFPAY | PROVIDERS: Visit Provider Family Medicine | DX: R10.13 Epigastric pain (principal) ==

== ENCOUNTER → 2021-01-14 16:02 | Outpatient (CLI) | payer MEDICARE, MEDICAID, SELFPAY ==
[2021-01-14 16:55] LABS: Basophils # 0.1 K/mm3 (0-0.2); Basophils % 0.9 % (0.1-2.0); Eosinophils # 0.2 K/mm3 (0.0-0.4); Eosinophils % 2.2 % (0.1-12.0); Hematocrit 38.9 % (37.0-47.0); Hemoglobin 12.8 g/dL (12.2-16.2); Lymphocytes # 1.8 K/mm3 (0.7-4.5); Lymphocytes % 26.4 % (10-50); Mean Corpuscular Hemoglobin 28.3 pg (27.0-31.2); Mean Corpuscular Volume 85.8 fl (81-99); Mean Platelet Volume 8.7 fl (7.4-10.4); Monocytes # 0.4 K/mm3 (0.1-1.0); Neutrophils # 4.4 K/mm3 (1.8-7.8); Neutrophils % 64.5 % (37.0-80.0); Platelet Count 276 K/mm3 (142-424); Red Blood Count 4.54 M/mm3 (4.20-5.40); Red Cell Distribution Width 14.9 % (11.5-17.5); White Blood Count 6.8 K/mm3 (4.8-10.8)
[2021-01-14 17:37] LABS: Alanine Aminotransferase 37 U/L (12-78); Albumin Level 4.1 g/dl (3.5-5.0); Albumin/Globulin Ratio 1.5 (1.1-1.8); Alkaline Phosphatase 85 U/L (38-126); Amylase 42 U/L (30-110); Anion Gap 8.8 mEq/L (5-15); Aspartate Amino Transferase 37 U/L (14-36); Bilirubin,Total 0.6 mg/dl (0.2-1.3); Blood Urea Nitrogen 10 mg/dl (7-17); Carbon Dioxide 29 mmol/L (22.0-30.0); Chloride 104 mmol/L (98-107); Estimated Glomerular Filt Rate 75 ml/min (>60); GFR (African American) 91 ML/MIN (>60); Globulin 2.8 g/dL (1.3-3.2); Glucose 106 mg/dl (74-100); Lipase 73 U/L (23-300); Potassium 3.8 mmoL/L (3.5-5.1); Sodium 138 mmol/L (136-145); Total Protein,Serum 6.9 g/dl (6.3-8.2)
[2021-01-16 15:10] LABS: H. pylori Breath Test Negative (Negative)
== END ==
PROVIDERS: Visit Provider Family Medicine
DX: R10.13 Epigastric pain (principal); R11.2 Nausea with vomiting, unspecified
CPT/HCPCS: 36415; 80053; 82150; 83013; 83690; 85025

== ENCOUNTER → 2021-03-26 16:24 | Outpatient (CLI) | payer MEDICARE, MEDICAID, SELFPAY ==
--- NOTE | 2021-03-26 16:29 | MM_ITS ---
PROCEDURE INFORMATION: Exam: MG Bilateral Screening 3D Mammography Exam date and time: 03/26/2021 4:29 PM Age: 50 years old Clinical indication: Screening mammogram TECHNIQUE: Imaging protocol: Bilateral Screening tomosynthesis and 2D mammography including computer-aided detection (CAD) when performed. COMPARISON: 1. MG MM DIG SCREENING MAMM BI W/CAD 02/16/2020 11:09 AM 2. MG SCBI MM Dig screening mamm BI w/CAD 04/12/2018 4:16 PM 3. MG SCBI MM Dig screening mamm BI w/CAD 04/07/2017 4:09 PM 4. MG DMSB DIG MAMM-SCREEN CELESTINO 10/26/2014 4:13 PM FINDINGS: MAMMOGRAPHY: Breast composition: There are scattered areas of fibroglandular density. Mass: None. Architectural distortion: No new or suspicious architectural distortion. Calcifications: No new or suspicious calcifications are present Asymmetric density: No new or suspicious asymmetric density is present Skin thickening: None. Axillary adenopathy: None. IMPRESSION: No mammographic evidence of malignancy. Recommend annual screening mammography unless otherwise clinically indicated. ASSESSMENT: BI-RADS category 1: Negative
== END ==
PROVIDERS: PCP Family Medicine; Visit Provider Nurse Practitioner Family
DX: Z12.31 Encounter for screening mammogram for malignant neoplasm of breast (principal)
CPT/HCPCS: 77063; 77067

== ENCOUNTER 2021-05-26 13:33 | Emergency (ER) | payer MEDICARE, MEDICAID, SELFPAY ==
--- NOTE | 2021-05-26 14:32 | HMH.EDUTC ---
[facility] Disposition Clinical Impression: Encounter for screening for COVID-19 Disposition: Home, Self-Care Condition on Discharge: Good Instructions: Preventing the Spread of Coronavirus Discharge Instructions Additional Instructions: Drink plenty of fluids. Take tylenol for pain or fever. Return if you begin to have difficulty breathing. Follow up with your regular doctor. GO TO THE ER FOR ANY WORSENING SYMPTOMS Referrals: Yash Cordero [Primary Care Provider] - Time of Disposition: 14:33 Medical Decision Making - Medical Records Medical records reviewed: No: I reviewed the patient's medical records. - Chirag Inquiry Pt receiving controlled substance: No Vital Signs: 05/26/21 14:50 05/26/21 14:55 Temperature 98.3 F 98.3 F Temperature Source Oral Pulse Rate 80 Pulse Rate [Left] 80 Respiratory Rate 19 19 Blood Pressure 152/89 H Blood Pressure [Right Arm] 152/89 H Blood Pressure Mean [Right Arm] 110 02 Sat by Pulse Oximetry 99 [facility] HPI - General Stated complaint: covid test Time Seen by Provider: 05/26/21 14:50 - History of Present Illness Provider Complaint: She needs a covid test for a medical procedure she has scheduled in 3 days. - Related Data Home Medications Medication Instructions Recorded Confirmed levocetirizine 5 mg tablet 5 mg PO DAILY #90 tab 05/30/18 05/22/21 levothyroxine 75 mcg capsule 75 mcg PO DAILY 07/12/18 05/22/21 cholecalciferol (vitamin D3) 125 15,000 unit PO ONCE cap 08/02/19 05/22/21 mcg (5,000 unit) capsule polysaccharide iron complex 180 mg 180 mg PO DAILY cap 02/21/20 05/22/21 iron capsule modafinil 100 mg tablet 200 mg PO DAILY PRN tab 06/27/20 05/22/21 Omeprazole [Omeprazole 40mg 40 mg PO DAILY 10/01/20 05/22/21 Capsule] albuterol sulfate 90 mcg/actuation g INHALATION 11/18/20 05/22/21 aerosol inhaler montelukast 10 mg tablet 10 mg PO tab 11/18/20 05/22/21 desvenlafaxine succinate 50 mg 50 mg PO BID tab 12/31/20 05/22/21 tablet,extended release 24 hr famotidine 20 mg tablet 20 mg PO DAILY tab 12/31/20 05/22/21 fluticasone propionate 50 g INTRANASAL 04/01/21 05/22/21 mcg/actuation nasal spray,suspension quetiapine 25 mg tablet 12.5 mg PO HS tab 04/01/21 05/22/21 Previous Rx's Medication Instructions Recorded hydrocortisone 1 % topical cream 1 applic TOPICAL TID PRN #28.35 g 05/23/21 Allergies Allergy/AdvReac Type Severity Reaction Status Date / Time No Known Allergies Allergy Verified 05/22/21 13:12 [facility] History - Hepatitis A Screen Attestation statement:: This patient has been screened for Hepatitis A risk factors. I have reviewed the patient's past medical history: Yes Medical History: Reports:: Anxiety, Depression, Diabetes Mellitus Type 2, Gastroesophageal Reflux Disease(GERD) Denies:: Cancer, Diabetes Mellitus Type 1, Internal Pacemaker, MRSA, Seizures Other Medical History: Reports: Anemia, Sinus Problems, Thyroid Disease, Other Laterality Cases: Bilateral: Tonsillectomy Other Surgeries: Yes: No Previous Surgery, Colonoscopy, EGD, Tubal Ligation. No: Pacemaker Amputation: No Fractures: No - Social History Smoking Status: Never smoker Alcohol Intake: never Substance Use Type: denies use Occupational Status: disabled Housing: house Household Members: none - Psychiatric History Pschychiatric History:: Reports:: Anxiety, Depression Family Hx:: Cancer, Hyperlipidemia, Hypertension ROS Obtained: Yes All systems reviewed & no additional complaints - Constitutional Constitutional: Reports system reviewed and no additional complaints, except as docu - Eyes Eyes: Reports system reviewed and no additional complaints, except as docu - ENT Ears, Nose, Mouth, and Throat: Reports system reviewed and no additional complaints, except as docu - Cardiovascular Cardiovascular: Reports system reviewed and no additional complaints, except as docu - Respiratory Respiratory: R
[2021-05-26 14:50] VITALS: BP 152/89; PULSE 80; RESP 19; TEMP 36.8; O2SAT 99; BMI 46.3
[2021-05-26 14:55] VITALS: BP 152/89; PULSE 80; RESP 19; TEMP 36.8
== END 2021-05-26 14:55 | disposition home or self-care (01) ==
PROVIDERS: Emergency Provider Nurse Practitioner Family; PCP Allergy & Immunology
DX: K21.9 Gastro-esophageal reflux disease without esophagitis (principal); Z03.89 Encounter for observation for other suspected diseases and conditions ruled out; E11.9 Type 2 diabetes mellitus without complications; E07.9 Disorder of thyroid, unspecified; F32.A Depression, unspecified; F41.9 Anxiety disorder, unspecified; Z20.822 Contact with and (suspected) exposure to COVID-19; Z79.51 Long term (current) use of inhaled steroids; Z79.899 Other long term (current) drug therapy; Z82.49 Family history of ischemic heart disease and other diseases of the circulatory system; Z80.9 Family history of malignant neoplasm, unspecified
CPT/HCPCS: 99213; C9803; G0463; U0003; U0005

== ENCOUNTER → 2021-08-19 12:57 | Outpatient (CLI) | payer MEDICARE, MEDICAID, SELFPAY ==
--- NOTE | 2021-08-19 13:03 | XR_ITS ---
FINAL REPORT CLINICAL HISTORY: acute left foot pain FINDINGS: LEFT FOOT Three views of the left foot demonstrate no acute fracture or dislocation. 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 Note is made of hammertoe deformity of the 2nd digit. The visualized joint spaces are normally aligned. There is a small plantar spur. The soft tissues are unremarkable. IMPRESSION: No acute bony abnormality. Reviewed, Interpreted and Dictated by Clarence Tavarez MD Transcribed by Brenda Vazquez Authenticated and [facility]
--- NOTE | 2021-08-19 13:03 | XR_ITS ---
FINAL REPORT CLINICAL HISTORY: acute foot pain FINDINGS: RIGHT FOOT Three views of the right foot demonstrate no acute fracture or dislocation. The visualized joint spaces are normally aligned. There is hypertrophic change at the talonavicular joint. There is moderate plantar spur. The soft tissues are unremarkable. IMPRESSION: No acute bony abnormality. Reviewed, Interpreted and Dictated by lCarence Tavarez MD Transcribed by Brenda Vazquez Authenticated and [facility]
== END ==
PROVIDERS: PCP Family Medicine; Visit Provider Nurse Practitioner Family
DX: M79.672 Pain in left foot; M79.671 Pain in right foot
CPT/HCPCS: 73630

== ENCOUNTER → 2022-01-19 11:30 | Outpatient (CLI) | payer MEDICARE, MEDICAID, SELFPAY ==
[2022-01-19 12:38] LABS: Basophils # 0.1 K/mm3 (0-0.2); Basophils % 1.9 % (0.1-2.0); Eosinophils # 0.1 K/mm3 (0.0-0.4); Eosinophils % 1.4 % (0.1-12.0); Hematocrit 40.9 % (37.0-47.0); Hemoglobin 13.8 g/dL (12.2-16.2); Lymphocytes # 1.6 K/mm3 (0.7-4.5); Lymphocytes % 35.1 % (10-50); Mean Corpuscular HGB Conc 33.7 g/dL (31.8-35.4); Mean Corpuscular Hemoglobin 29.9 pg (27.0-31.2); Mean Corpuscular Volume 88.5 fl (81-99); Mean Platelet Volume 8.3 fl (7.4-10.4); Monocytes # 0.5 K/mm3 (0.1-1.0); Monocytes % 11.4 % (1.7-9.3); Neutrophils # 2.3 K/mm3 (1.8-7.8); Neutrophils % 50.1 % (37.0-80.0); Platelet Count 154 K/mm3 (142-424); Red Blood Count 4.62 M/mm3 (4.20-5.40); Red Cell Distribution Width 13.9 % (11.5-17.5); White Blood Count 4.5 K/mm3 (4.8-10.8)
== END ==
PROVIDERS: PCP Family Medicine; Visit Provider Nurse Practitioner Family
DX: U07.1 COVID-19 (principal)
CPT/HCPCS: 36415; 85025; 87275; 87276; C9803; U0003; U0005

== ENCOUNTER 2022-01-20 01:17 | Emergency (ER) | payer MEDICARE, MEDICAID, SELFPAY ==
--- NOTE | 2022-01-20 01:25 | ECG_ITS ---
APPROVED REPORT Exam: Resting ECG HR:78 bpm ECG Measurements Heart Rate 78 AXES WV 136 P 49 QRSd 112 QRS -15 QT 394 T 81 QTc 427 Conclusion SINUS RHYTHM LOW QRS VOLTAGE IN PRECORDIAL LEADS [QRS DEFLECTION < 1.0 mV IN CHEST LEADS] MODERATE INTRAVENTRICULAR CONDUCTION DELAY [110+ ms QRS DURATION] NONSPECIFIC T-WAVE ABNORMALITY BORDERLINE ECG UNCONFIRMED REPORT Electronically signed by : Aroldo Dinero MD 01/20/2022 19:54:17
[2022-01-20 01:31] VITALS: BP 153/85; PULSE 85; RESP 18; TEMP 37.3; O2SAT 98; BMI 46.3
--- NOTE | 2022-01-20 01:36 | XR_ITS ---
PROCEDURE INFORMATION: Exam: XR Chest Exam date and time: 01/20/2022 1:37 AM Age: 51 years old Clinical indication: Cough TECHNIQUE: Imaging protocol: Radiologic exam of the chest. Views: 2 views. COMPARISON: CR XR CHEST PORTABLE 05/09/2019 4:18 PM FINDINGS: Lungs: Unremarkable. No consolidation. Pleural spaces: Unremarkable. No pleural effusion. No pneumothorax. Heart/Mediastinum: Unremarkable. No cardiomegaly. Vasculature: Unremarkable. Bones/joints: Unremarkable. IMPRESSION: No acute findings.
--- NOTE | 2022-01-20 01:48 | HMH.EDURI ---
Discharge Plan Disposition Patient Disposition: Home, Self-Care Chief Complaint: Upper Respiratory Infection Prescriptions Prescriptions: No Action levocetirizine 5 mg tablet 5 mg PO DAILY Qty: 90 Label Comments: one and one half tab daily cholecalciferol (vitamin D3) 125 mcg (5,000 unit) capsule 5,000 unit PO ONCE levothyroxine 75 mcg capsule 75 mcg PO DAILY montelukast 10 mg tablet 10 mg PO albuterol sulfate [Ventolin HFA] 90 mcg/actuation HFA aerosol inhaler INHALATION polysaccharide iron complex 180 mg iron capsule 180 mg PO DAILY Label Comments: TAKE 1 CAPSULE BY MOUTH ONCE DAILY famotidine 20 mg tablet 20 mg PO DAILY quetiapine 25 mg tablet 12.5 mg PO HS fluticasone propionate 50 mcg/actuation spray,suspension INTRANASAL mecobalamin (vitamin B12) 1,000 mcg tablet,disintegrating 1,000 mcg SL DAILY Rx Instructions: place tablet under tongue and allow to dissolve for at least30 secs before swallowing Arnuity Ellipta 100 mcg/actuation blister with device 1 inh IH DAILY nystatin [Nyamyc] 100,000 unit/gram powder TP meloxicam 7.5 mg tablet 7.5 mg PO DAILY 30 Days Qty: 30 2RF omeprazole 40 MG capsule,delayed release(DR/EC) 40 mg PO DAILY desvenlafaxine succinate 50 mg tablet extended release 24 hr 50 mg PO BID Referrals Follow up/Referrals: Cash Burton MD [Primary Care Provider] - See instructions Clinical Impressions Clinical Impression: COVID-19 Instructions Patient Instructions: DI for COVID-19 (Suspected or Confirmed ) Discharge ED Provider: Herberth Quiros URI/Sore Throat HPI General Chief Complaint: Upper Respiratory Infection Stated Complaint: Difficulty breathing Time Seen by Provider: 01/20/22 01:48 Mode of Arrival: Ambulatory Source of Information: Patient and Medical Record Limitations: No Limitations Description of Symptoms (Recalled from ER Triage Doc. by RN): Per pt, she has not been feeling well since this weekend. Was swabbed for covid and flu this morning but was negative. States that tonight her cough has gotten worse, especially with laying flat. Does c/o low grade fever intermittently and mild congestion. History of Present Illness HPI Narrative: not feeling well with fever and cough and seen by pcp anbd has positive covid-19 MD Complaint: fever, cough and sore throat Onset (ago): day(s) Duration: intermittent Severity: moderate Able to tolerate fluids by mouth: Yes Treatments prior to arrival: acetaminophen and ibuprofen Related Data Home Medications Medication Instructions Recorded Confirmed levocetirizine 5 mg tablet 5 mg PO DAILY Allergy symptoms #90 05/30/18 11/11/21 tabs levothyroxine 75 mcg capsule 75 mcg PO DAILY thyroid 07/12/18 11/11/21 polysaccharide iron complex 180 mg 180 mg PO DAILY Supplement 02/21/20 08/18/21 iron capsule omeprazole 40 mg capsule,delayed 40 mg PO DAILY Reflux/Acid reflux 10/01/20 08/18/21 release albuterol sulfate 90 mcg/actuation g inhalation 11/18/20 11/11/21 aerosol inhaler (Ventolin HFA) montelukast 10 mg tablet 10 mg PO 11/18/20 11/11/21 desvenlafaxine succinate 50 mg 50 mg PO BID Depression 12/31/20 11/11/21 tablet,extended release 24 hr famotidine 20 mg tablet 20 mg PO DAILY 12/31/20 11/11/21 fluticasone propionate 50 g intranasal 04/01/21 11/11/21 mcg/actuation nasal spray,suspension quetiapine 25 mg tablet 12.5 mg PO HS 04/01/21 11/11/21 cholecalciferol (vitamin D3) 125 5,000 unit PO ONCE supplemm 07/01/21 11/11/21 mcg (5,000 unit) capsule fluticasone furoate 100 1 inh inhalation DAILY 07/01/21 11/11/21 mcg/actuation blister powder for inhalation (Arnuity Ellipta) mecobalamin (vitamin B12) 1,000 1,000 mcg sublingual DAILY 07/01/21 11/11/21 mcg disintegrating tablet,sublingual nystatin 100,000 unit/gram topical g topical 08/18/21 11/11/21 powder ([facility]) Previous
[2022-01-20 01:52] LABS: Basophils # 0.1 K/mm3 (0-0.2); Basophils % 1.2 % (0.1-2.0); Eosinophils # 0.1 K/mm3 (0.0-0.4); Eosinophils % 1.6 % (0.1-12.0); Hematocrit 42.3 % (37.0-47.0); Hemoglobin 13.8 g/dL (12.2-16.2); Lymphocytes # 1.8 K/mm3 (0.7-4.5); Lymphocytes % 37.1 % (10-50); Mean Corpuscular HGB Conc 32.5 g/dL (31.8-35.4); Mean Corpuscular Hemoglobin 29.3 pg (27.0-31.2); Mean Corpuscular Volume 90.2 fl (81-99); Mean Platelet Volume 8.8 fl (7.4-10.4); Monocytes # 0.4 K/mm3 (0.1-1.0); Monocytes % 8.6 % (1.7-9.3); Neutrophils # 2.6 K/mm3 (1.8-7.8); Neutrophils % 51.5 % (37.0-80.0); Platelet Count 125 K/mm3 (142-424); Red Blood Count 4.69 M/mm3 (4.20-5.40); Red Cell Distribution Width 13.8 % (11.5-17.5)
[2022-01-20 01:59] LABS: Alanine Aminotransferase 44 U/L (12-78); Albumin Level 4.3 g/dl (3.5-5.0); Albumin/Globulin Ratio 1.3 (1.1-1.8); Alkaline Phosphatase 106 U/L (38-126); Aspartate Amino Transferase 56 U/L (14-36); Bilirubin,Total 0.5 mg/dl (0.2-1.3); Blood Urea Nitrogen 15 mg/dl (7-17); Calcium 9.3 mg/dl (8.4-10.2); Carbon Dioxide 27 mmol/L (22.0-30.0); Chloride 104 mmol/L (98-107); Creatinine Clearance Estimated 51 mL/min (50-200); Estimated Glomerular Filt Rate 52 ml/min (>60); GFR (African American) 63 ML/MIN (>60); Globulin 3.2 g/dL (1.3-3.2); Glucose 114 mg/dl (74-100); Sodium 139 mmol/L (136-145); Total Protein,Serum 7.5 g/dl (6.3-8.2)
[2022-01-20 03:05] VITALS: BP 153/85; PULSE 82; RESP 18; TEMP 36.6; O2SAT 99
== END 2022-01-20 03:43 | disposition home or self-care (01) ==
PROVIDERS: Emergency Provider Emergency Medicine; PCP Family Medicine
DX: U07.1 COVID-19 (principal); Z79.899 Other long term (current) drug therapy
CPT/HCPCS: 71046; 80053; 85025; 93005; 96365; 99284

== ENCOUNTER → 2022-04-15 15:24 | Outpatient (CLI) | payer MEDICARE, MEDICAID, SELFPAY ==
--- NOTE | 2022-04-15 15:29 | MM_ITS ---
PROCEDURE INFORMATION: Exam: MG Bilateral Screening 3D Mammography Exam date and time: 04/15/2022 3:22 PM Age: 51 years old Clinical indication: Screening examination TECHNIQUE: Imaging protocol: Bilateral Screening tomosynthesis and 2D mammography including computer-aided detection (CAD) when performed. COMPARISON: 1. MG MM DIG SCREENING MAMM BI W/CAD 03/26/2021 4:24 PM 2. MG MM DIG SCREENING MAMM BI W/CAD 02/16/2020 11:09 AM FINDINGS: MAMMOGRAPHY: Breast composition: The breasts are almost entirely fatty. Mass: None. Architectural distortion: None. Calcifications: No suspicious calcifications. Asymmetric density: None. Skin thickening: None. Axillary adenopathy: None. IMPRESSION: No mammographic evidence of malignancy. Annual screening is recommended unless otherwise clinically indicated. ASSESSMENT: BI-RADS Category 1: Negative
== END ==
PROVIDERS: PCP Family Medicine; Visit Provider Nurse Practitioner Family
DX: Z12.31 Encounter for screening mammogram for malignant neoplasm of breast (principal)
CPT/HCPCS: 77063; 77067

== ENCOUNTER → 2022-05-20 13:48 | Outpatient (CLI) | payer MEDICARE, MEDICAID, SELFPAY ==
--- NOTE | 2022-05-20 13:52 | US_ITS ---
FINAL REPORT CLINICAL HISTORY: VAGINAL BLEEDING COMPARISON: None FINDINGS: Transvaginal sonographic images of the pelvis were obtained. The uterus measures 7.7 x 4.0 x 5.2 cm. The uterus has a mildly lobulated contour, likely representing small uterine fibroids. The endometrium measures 9 mm, which is within normal limits. No uterine mass is identified. The right ovary measures 1.5 cm in length. Left ovary not visualized secondary to overlying bowel gas. Normal blood flow seen to the ovaries. There is a small follicle in the right ovary measuring 10 mm. There is no evidence of free fluid. IMPRESSION: Likely small uterine fibroids. Small follicle right ovary. Reviewed, Interpreted and Dictated by Juan Ny III, MD Transcribed by Yamilet Del Rosario Authenticated and [facility]
== END ==
PROVIDERS: PCP Family Medicine; Visit Provider Nurse Practitioner Family
DX: N93.9 Abnormal uterine and vaginal bleeding, unspecified (principal)
CPT/HCPCS: 76830

== ENCOUNTER 2022-10-10 21:38 | Emergency (ER) | payer MEDICARE, MEDICAID, SELFPAY ==
[2022-10-10 21:40] VITALS: BP 154/89; PULSE 79; RESP 20; TEMP 36.9; O2SAT 99; BMI 46.3
[2022-10-10 21:46] VITALS: BP 154/89; PULSE 82; O2SAT 97
--- NOTE | 2022-10-10 21:54 | ECG_ITS ---
APPROVED REPORT Exam: Resting ECG HR:72 bpm ECG Measurements Heart Rate 72 AXES IA 151 P 40 QRSd 110 QRS -13 QT 392 T 57 QTc 417 Conclusion SINUS RHYTHM LOW QRS VOLTAGE IN PRECORDIAL LEADS [QRS DEFLECTION < 1.0 mV IN CHEST LEADS] PATTERN CONSISTENT WITH PULMONARY DISEASE INCOMPLETE RIGHT BUNDLE BRANCH BLOCK [90+ ms QRS DURATION, TERMINAL R IN V1/V2, 40+ ms S IN I/aVL/V4/V5/V6] ABNORMAL ECG UNCONFIRMED REPORT Electronically signed by : Aroldo Dinero MD 10/12/2022 15:52:38
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
[2022-10-10 22:00] VITALS: BP 155/78; PULSE 67; O2SAT 99
[2022-10-10 22:02] LABS: POC Glucose,Bedside 106 (70-110)
[2022-10-10 22:31] VITALS: BP 156/74; PULSE 75; RESP 21; O2SAT 99
[2022-10-10 22:35] LABS: Basophils % 0.3 % (0.1-2.0); Eosinophils # 0.3 K/mm3 (0.0-0.4); Hematocrit 36.9 % (37.0-47.0); Hemoglobin 12.2 g/dL (12.2-16.2); Lymphocytes # 2.1 K/mm3 (0.7-4.5); Lymphocytes % 16.9 % (10-50); Mean Corpuscular HGB Conc 32.9 g/dL (31.8-35.4); Mean Corpuscular Volume 91.2 fl (81-99); Mean Platelet Volume 8.9 fl (7.4-10.4); Monocytes # 0.6 K/mm3 (0.1-1.0); Monocytes % 4.5 % (1.7-9.3); Neutrophils # 9.5 K/mm3 (1.8-7.8); Neutrophils % 76.3 % (37.0-80.0); Platelet Count 268 K/mm3 (142-424); Red Blood Count 4.05 M/mm3 (4.20-5.40); Red Cell Distribution Width 13.8 % (11.5-17.5); White Blood Count 12.4 K/mm3 (4.8-10.8)
[2022-10-10 22:36] LABS: Chloride 104 mmol/L (98-107); Sodium 137 mmol/L (136-145)
[2022-10-10 22:38] LABS: Alanine Aminotransferase 24 U/L (12-78); Aspartate Amino Transferase 29 U/L (14-36); Blood Urea Nitrogen 13 mg/dl (7-17); Creatinine Clearance Estimated 62 mL/min (50-200); Estimated Glomerular Filt Rate 65 ml/min (>60); GFR (African American) 79 ML/MIN (>60)
[2022-10-10 22:39] LABS: Albumin Level 3.5 g/dl (3.5-5.0); Albumin/Globulin Ratio 1.1 (1.1-1.8); Alkaline Phosphatase 61 U/L (38-126); Bilirubin,Total 0.5 mg/dl (0.2-1.3); Calcium 8.6 mg/dl (8.4-10.2); Carbon Dioxide 25 mmol/L (22.0-30.0); Globulin 3.1 g/dL (1.3-3.2); Glucose 105 mg/dl (74-100); Magnesium 1.8 mg/dl (1.6-2.3); Phosphorous 3.5 mg/dl (2.5-4.5); Total Protein,Serum 6.6 g/dl (6.3-8.2)
--- NOTE | 2022-10-10 22:46 | PC.NURSE ---
Rounded on patient, no concerns at this time.
--- NOTE | 2022-10-10 22:52 | PC.NURSE ---
in room talking with patient at this time.
[2022-10-10 22:53] LABS: Troponin I < 0.01 ng/ml (0.00-0.034)
[2022-10-10 22:59] VITALS: BP 156/74; PULSE 74; RESP 19; TEMP 36.8; O2SAT 98
[2022-10-10 23:10] LABS: Thyroid Stimulating Hormone 4.01 uIU/mL (0.465-4.68)
== END 2022-10-10 22:59 | disposition home or self-care (01) ==
PROVIDERS: Emergency Provider Student in an Organized Health Care Education/Training Program; PCP Family Medicine
DX: R55 Syncope and collapse (principal); R53.1 Weakness; F43.10 Post-traumatic stress disorder, unspecified
CPT/HCPCS: 80053; 82962; 83735; 84100; 84443; 84484; 85025; 93005; 96360; 99285

== ENCOUNTER → 2022-10-21 15:32 | Outpatient (CLI) | payer MEDICARE, MEDICAID, SELFPAY | PROVIDERS: PCP Family Medicine; Visit Provider Internal Medicine | DX: R42 Dizziness and giddiness (principal) | CPT/HCPCS: 93225 ==

== ENCOUNTER → 2022-10-26 16:21 | Outpatient (CLI) | payer MEDICARE, MEDICAID, SELFPAY | PROVIDERS: PCP Family Medicine; Visit Provider Internal Medicine | DX: I45.10 Unspecified right bundle-branch block (principal); R55 Syncope and collapse; R94.31 Abnormal electrocardiogram [ECG] [EKG] | CPT/HCPCS: 93270 ==

== ENCOUNTER → 2022-10-29 12:08 | Outpatient (CLI) | payer MEDICARE, MEDICAID, SELFPAY ==
--- NOTE | 2022-10-29 | CA_ITS ---
APPROVED REPORT Exam: Pharmacologic Technologist: Francoise Thompson, Ht: 5 ft 4 in Wt: 263 lbs BSA: 2.20 m2 HR: 62 bpm BP: 155/68 mmHg Rhythm: SR RBBB Medical History Medical History: HTN, Hyperlipidemia, Diabetes Medications: Omeprazole,,,,, Levothyroxine,,,,, FOLIC ACID,,,,, Albuterol,,,,, Montelukast,,,,, Vit D3,,,,, Famotidine,,,,, Vit B12,,,,, Levocetirizine,,,,, Seroqual,,,,, NYstatin,,,,, Polysaccharide iron complex,,,,, Allergies: No known drug allergies Cardiac Risk Factors: HTN, Hyperlipidemia, Diabetes , FHX of CAD Stress Test Details Test: LEXISCAN HR Resting HR: 62 bpm Max Heart Rate (APMHR): 166 bpm Max HR Achieved: 85 bpm Target HR (85% APMHR): 141 bpm % of APMHR: 51 Recovery HR: 69 bpm BP Resting BP: 155/68 mmHg Max BP: 164/73 mmHg Recovery BP: 164.0/73.0 mmHg ECG Resting ECG: SR, RBBB Stress ECG: No significant ST changes Arrhythmia: None Clinical Exercise duration: 04:01 min Highest Stage Achieved: Stress ECG Conclusion PT HAD CHEST HEAVINESS NO ST CHANGES ECTOPY/ARRHYTHMIA: NONE CONCLUSION UNREMARKABLE LEXISCAN STRESS TEST. MYOVIEW IMAGES ARE REPORTED SEPARATELY. Test Summary REST 01:49 . . 62 . 155/ 68 . . Stage 1 01:00 . . 75 . . . . Stage 2 01:00 . . 83 . . . . Stage 3 01:00 . . 82 . 153/ 77 . . Stage 4 01:00 . . 79 . 148/ 70 . . Stage 4 01:01 . . 79 . 148/ 70 . Stop exercise at 04:01 RECOVERY 01:00 . . 80 . 141/ 80 . . RECOVERY 02:00 . . 77 . 156/ 75 . . RECOVERY 03:00 . . 71 . 156/ 75 . . RECOVERY 04:00 . . 71 . 164/ 73 . . RECOVERY 04:10 . . 0 . 164/ 73 . . Electronically signed by : Suzanne Fam MD 11/07/2022 00:56:08
--- NOTE | 2022-10-29 12:14 | NM_ITS ---
APPROVED REPORT Exam: Nuclear Stress Test Indication: Abnormal EKG, Syncope, DM Patient Location: Outpatient Stress Tech: Francoise Thompson NM Tech:Yeimy PelaezMAILE RT(R)(N) Ht: 5 ft 4 in Wt: 270 lbs Bra Size: D HR: 62 bpm BP: 155/68 mmHg BSA: 2.22 m2 Rhythm: NSR TID: 1.28 BMI: 46.3 History: Abnormal EKG, Syncope, DM Procedure: Patient received 0.4 mg of intravenous Lexiscan, resting heart rate 62 bpm, resting blood pressure 155/68 mmHg, with Lexiscan maximum heart rate achieved was 85 bpm which is % of the maximum predicted heart rate and blood pressure was 164/73 mmHg. With Lexiscan, patient denied any complaint of chest pain. Cardiac Stress and Resting SPECT Images: Cardiac Stress and Resting SPECT images were obtained using technetium 99m Myoview 30.1 mCi stress and 10.14 mCi at rest. Resting and stress imaging in both supine and prone positions demonstrate no evidence of fixed or reversible perfusion defects. There is increased transient ischemic dilatation ratio (TID 1.28), suggestive of possible multivessel disease or balanced ischemia. Gated imaging demonstrates normal global and regional LV systolic function. LVEF is calculated at 57%. Conclusion: No evidence of fixed or reversible perfusion defects. Increased transient ischemic dilatation ratio (TID 1.28), suggestive of possible multivessel disease or balanced ischemia. Gated imaging demonstrates normal global and regional LV systolic function. LVEF is calculated at 57%. Electronically signed by : Suzanne Fam MD 11/07/2022 00:58:10
== END ==
PROVIDERS: PCP Family Medicine; Visit Provider Internal Medicine
DX: I45.10 Unspecified right bundle-branch block (principal); R55 Syncope and collapse; R94.31 Abnormal electrocardiogram [ECG] [EKG]
CPT/HCPCS: 78452; 93017; A9502; J2785

== ENCOUNTER → 2022-11-12 09:46 | Outpatient (CLI) | payer MEDICARE, MEDICAID, SELFPAY ==
--- NOTE | 2022-11-12 09:50 | CA_ITS ---
APPROVED REPORT EXAM: Comprehensive 2D, Doppler, and color-flow Echocardiogram Optomechanical Technician: Alysha Sagastume RDCS Ht: 5 ft 4 in Wt: 263lbs BSA: 2.20 BP: 134/59 mmHg Indications: ABN EKG,NEAR SYNCOPE 2D Dimensions LVOT 1.81 cm (M/F) 1.5-2.5 M-Mode Dimensions RVDd 2.43 cm (0.9-2.6) LA Diam 3.28 cm (1.9-4.0) LVDd 5.40 cm (3.5-5.7) Ao Diam 3.35 cm (2.0-3.7) LVDs 3.76 cm (3.5-5.7) IVSd 0.87 cm (0.6-1.1) PWd 0.95 cm (0.6-1.1) EF (Teich) 57.30% FS 30.40% EDV (Teich) 141.30 mL ESV (Teich) 60.40 mL LV Diastology E Decel Time 170.00 (160-240 msec) E/A Ratio 1.2 MED E' 6.40 (< 7 cm/sec) E'/MED E' Ratio 11.13 (>14) LAT E' 8.60 (<10 cm/sec) E/LAT E' Ratio 8.28 (>14) Mitral Valve MV E Max Daryn. 71.00 (40-130 cm/s) MV A Velocity 60.00 (40-130 cm/s) E/A Ratio 1.19 MV Decel. Time 170.00 (160-240 ms) MV PHT 50.00 ms Left Ventricle The left ventricle is normal size. The left ventricular systolic function is normal. The left ventricular ejection fraction is within the normal range. There is normal left ventricular wall thickness. There is normal LV segmental wall motion. The left ventricular diastolic function is normal. LVEF is 60%. Right Ventricle The right ventricle is normal size. The right ventricular systolic function is normal. There is increased RV wall thickness. Atria The left atrium size is normal. The right atrium size is normal. There is no Doppler evidence of interatrial shunt. Aortic Valve The aortic valve is normal in structure. The aortic valve is trileaflet. There is no aortic valvular stenosis. No aortic regurgitation is present. Mitral Valve The mitral valve is normal in structure. No evidence of mitral valve stenosis. There is no mitral valve regurgitation noted. Tricuspid Valve The tricuspid valve leaflets are thin and pliable. Trace tricuspid regurgitation. There is insufficient TR jet to estimate RVSP. Pulmonic Valve The pulmonary valve is normal in structure. Trace pulmonic regurgitation. Great Vessels The aortic root is normal in size. The ascending aorta is normal in size. IVC is normal in size and collapses >50% with inspiration. Pericardium There is no pericardial effusion. Other Information Study Quality: Technically Difficult Conclusion This was a technically difficult study due to poor acoustic windows. Normal biventricular systolic function. No significant valvular stenosis or regurgitation. Electronically signed by : Suzanne Fam MD 11/14/2022 22:56:41
== END ==
LOC: RT 09:47
PROVIDERS: PCP Family Medicine; Visit Provider Internal Medicine
DX: I45.10 Unspecified right bundle-branch block (principal); R55 Syncope and collapse; R94.31 Abnormal electrocardiogram [ECG] [EKG]
CPT/HCPCS: 93306

== ENCOUNTER 2022-12-14 08:24 | Outpatient (CLI) | payer MEDICARE, MEDICAID, SELFPAY ==
[2022-12-14] VITALS (8 sets, daily range): BP systolic 116–159; BP diastolic 67–89; PULSE 53–63; RESP 18; TEMP 36.1–36.3; O2SAT 97–99; BMI 46.3
--- NOTE | 2022-12-14 08:24 | CT_ITS ---
APPROVED REPORT Electrical And Radio Aircraft Mechanic: CLINICAL INDICATION Chest Pain TECHNIQUE Image Acquisition: A 128 slice MDCT scanner (Transcend Medical[employer] View) was used for data acquisition. A noncontrast coronary calcium scan was performed. A CT attenuation threshold of 130 Hounsfield units (HU) was used for the detection of calcium in contiguous voxels of 1 sq mm in area to be counted as individual lesions. Bolus tracking in the ascending aorta with a threshold of 180 HU was performed. Immediately afterwards, ECG synchronized cardiac CT was then performed from the cardiac base to apex using retrospective gating with ECG tube current modulation. A total of 85 mL of Isovue 370 mg/mL contrast medium was administered at 5 mL/sec followed by a saline flush using a biphasic injection protocol. A tube voltage of 120 KVp was used. The patient received the following medications prior to the cardiac CT. 25 mg of oral metoprolol 0.8 mg of sublingual nitroglycerin The average heart rate at the time of acquisition was 54 bpm and regular. Image Reconstruction Transaxial images were reconstructed at 0.67 mm slide thickness. Data was reviewed interactively on an advanced workstation capable of 2 and 3-dimensional displays in all conventional reconstruction formats, including multiplanar reformations, maximum intensity projections, curved multiplanar reformations, and volume rendered reconstructions. When applicable, selected routine images describing the relevant coronary anatomy and pathology were saved and sent to PACS. Complications None Technical Quality Overall image quality was good. Coronary artery opacification was adequate. Total DLP (Dose-Length Product) is 1326.8 mGy-cm. The reported value represents the total of one or more individual components during the CT acquisition of this date and at this time, and as such, the same value may appear in more than one CT report depending on the interpreting/reporting physicians. COMPARISON None FINDINGS CT Coronary Calcium Scoring LMA (Left Main Artery) = 0 LAD (Left Anterior Descending) = 36 LCX (Left Coronary Circumflex) = 0 RCA (Right Coronary Artery) = 0 Total Calcium Score = 36 using the AJ-130 method. The observed calcium score of 36 is at 91st percentile for subjects of the same age, sex, and race/ethnicity. The interpretation of the calcium heart score is based on the following continuum*: 0 = no calcified plaque detected (risk of coronary artery disease is very low ??? less than 5%) 1-10 = calcium detected in extremely minimal levels (risk of coronary diseases is still low ??? less than 10%) 11-100 = mild levels of plaque detected with certainty (mild or minimal narrowing of heart arteries is likely) 101-400 = definite,at least moderate levels of plaque detected (relatively high risk of a heart attack within 3-5 years) >401-999 = extensive levels of plaque detected (high risk of heart attack, high levels of vascular disease are present, high likelihood of at least one significant coronary narrowing) *The calcium heart score quantifies the burden of coronary calcification/plaque in the coronary arteries. The calcium heart score is not able to evaluate the presence or burden of non-calcified (i.e. soft) plaque. There is no identifiable calcification in the aortic valve, mitral annulus or mitral valve, pericardium, or myocardium. Coronary CT Angiography Coronaries have normal origin and proximal course. The coronary arterial system is right dominant. Note: Stenosis is reported as maximum percentage diameter stenosis. Quantitative Stenosis Grading: Left Main (LM): The left main originates normally from the left sinus of Valsalva. The LM bifurcates into the left anterior descending artery and
[2022-12-14 09:03] LABS: Anion Gap 13.2 mEq/L (5-15); Blood Urea Nitrogen 14 mg/dl (7-17); Calcium 8.7 mg/dl (8.4-10.2); Carbon Dioxide 25 mmol/L (22.0-30.0); Chloride 104 mmol/L (98-107); Creatinine Clearance Estimated 62 mL/min (50-200); Estimated Glomerular Filt Rate 65 ml/min (>60); GFR (African American) 79 ML/MIN (>60); Glucose 111 mg/dl (74-100); Potassium 4.2 mmoL/L (3.5-5.1); Sodium 138 mmol/L (136-145)
--- NOTE | 2022-12-14 10:04 | PC.NURSE ---
Arrived to CT room, VSS, Nitro given per CTA protocol
--- NOTE | 2022-12-14 10:08 | PC.NURSE ---
post nitro vital, no C/O
--- NOTE | 2022-12-14 10:14 | PC.NURSE ---
Test complete, pt C/O ACOSTA and lightheadedness. Pt assisted to side of table and symptoms improved. Pt taken to post op for recovery, report to Mary Lou Healy RN
[2022-12-15 09:01] LABS: POC Glucose,Bedside 104 (70-110)
== END 2022-12-14 10:50 | disposition home or self-care (01) ==
PROVIDERS: PCP Family Medicine; Visit Provider Physician Assistant
DX: R94.39 Abnormal result of other cardiovascular function study (principal); R55 Syncope and collapse; R94.31 Abnormal electrocardiogram [ECG] [EKG]; I45.10 Unspecified right bundle-branch block; R07.9 Chest pain, unspecified
CPT/HCPCS: 75571; 75574; 80048; 82962; Q9967

== ENCOUNTER 2023-04-06 15:06 | Outpatient (CLI) | payer MEDICARE, MEDICAID, SELFPAY ==
[2023-04-06 15:24] LABS: Basophils # 0.1 K/mm3 (0-0.2); Basophils % 0.5 % (0.1-2.0); Eosinophils # 0.5 K/mm3 (0.0-0.4); Eosinophils % 4.7 % (0.1-12.0); Hematocrit 42.2 % (37.0-47.0); Hemoglobin 14.1 g/dL (12.2-16.2); Lymphocytes # 1.9 K/mm3 (0.7-4.5); Lymphocytes % 17.9 % (10-50); Mean Corpuscular HGB Conc 33.3 g/dL (31.8-35.4); Mean Corpuscular Hemoglobin 31.4 pg (27.0-31.2); Mean Corpuscular Volume 94.1 fl (81-99); Mean Platelet Volume 8.4 fl (7.4-10.4); Monocytes # 0.7 K/mm3 (0.1-1.0); Monocytes % 6.1 % (1.7-9.3); Neutrophils # 7.7 K/mm3 (1.8-7.8); Neutrophils % 70.9 % (37.0-80.0); Platelet Count 285 K/mm3 (142-424); Red Blood Count 4.49 M/mm3 (4.20-5.40); Red Cell Distribution Width 14.4 % (11.5-17.5); White Blood Count 10.8 K/mm3 (4.8-10.8)
[2023-04-06 16:11] LABS: Alanine Aminotransferase 19 U/L (12-78); Albumin/Globulin Ratio 1.4 (1.1-1.8); Alkaline Phosphatase 99 U/L (38-126); Anion Gap 8.6 mEq/L (5-15); Aspartate Amino Transferase 24 U/L (14-36); Bilirubin,Total 0.7 mg/dl (0.2-1.3); Blood Urea Nitrogen 13 mg/dl (7-17); Calcium 9.2 mg/dl (8.4-10.2); Carbon Dioxide 31 mmol/L (22.0-30.0); Chloride 104 mmol/L (98-107); Estimated Glomerular Filt Rate 75 ml/min (>60); GFR (African American) 90 ML/MIN (>60); Globulin 2.8 g/dL (1.3-3.2); Glucose 96 mg/dl (74-100); Potassium 4.6 mmoL/L (3.5-5.1); Sodium 139 mmol/L (136-145); Total Protein,Serum 6.8 g/dl (6.3-8.2)
== END 2023-04-06 23:59 ==
LOC: LAB 15:09
PROVIDERS: PCP Family Medicine; Visit Provider Nurse Practitioner Obstetrics & Gynecology
DX: N95.0 Postmenopausal bleeding (principal)
CPT/HCPCS: 36415; 80053; 85025

== ENCOUNTER 2023-04-12 07:17 | Day surgery (SDC) | payer MEDICARE, MEDICAID, SELFPAY ==
[2023-04-12] VITALS (8 sets, daily range): BP systolic 113–150; BP diastolic 53–84; PULSE 59–69; RESP 12–18; TEMP 35.7–36.2; O2SAT 93–98; BMI 46.3
--- NOTE | 2023-04-12 07:29 | ECG_ITS ---
APPROVED REPORT Exam: Resting ECG HR:64 bpm ECG Measurements Heart Rate 64 AXES VA 166 P 27 QRSd 106 QRS -22 QT 408 T 41 QTc 417 Conclusion SINUS RHYTHM BORDERLINE LEFT AXIS DEVIATION [QRS AXIS < -20] LOW QRS VOLTAGE IN PRECORDIAL LEADS Incomplete bundle branch block with features of delta wave ABNORMAL ECG UNCONFIRMED REPORT Electronically signed by : Aroldo Dinero MD 04/12/2023 17:54:34
[2023-04-12] MEDS: LACTATED RINGERS 1000ML 1,000 ML 25 ML IV (07:31)
[2023-04-12 07:48] LABS: POC Glucose,Bedside 102 (70-110)
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
[2023-04-12 08:02] LABS: HCG Qualitative, Serum Negative (Negative)
[2023-04-12] MEDS: CEFAZOLIN SODIUM 2 GM in 0.9 % SODIUM CHLORIDE 100 ML IV (09:18)
[2023-04-12] MEDS: SODIUM CHLORIDE IRRIG SOLUTION 3,000 ML 200 ML IR (09:45)
--- NOTE | 2023-04-12 09:59 | EXP.ANES.I ---
[facility] Anesthesia Record Part I Anesthesia Record I Intake, IV Amount: 400 Hydration: Adequate Estimated blood loss (mL): 10 Urine output (mL): 50 Blood Products used (#): none Blood Pressure: 122/74 SaO2: 95 Pulse Rate: 69 Airway Patency: Patent Respiratory Rate: 18 Temperature: 96.3 F Patient is:: Awake and Stable Stable to PACU at:: 10:03
--- NOTE | 2023-04-12 10:02 | SUR.PHASEI ---
0958- oral airway present upon arrival to PACU.
--- NOTE | 2023-04-12 10:06 | SUR.PHASEI ---
1005- oral airway removed at this time
--- NOTE | 2023-04-12 10:07 | EXP.OP.NOTE ---
Date of procedure: 04/12/23 Pre-op Diagnosis:: Postmenopausal bleeding Post-op Diagnosis:: Postmenopausal bleeding Procedure performed:: Hysteroscopy, MyoSure resection of endometrium Surgeon:: Danny Huffman MD STEEPING PRESS OPERATOR:: Other (Linda Wright) Anesthesia: LMA Estimated blood loss (mL): 10 Clinical Note:: She is a 52-year-old lady who has had postmenopausal bleeding. Her endometrium was 9 mm thick and it looked like there may have been a polyp. As result of that she was offered hysteroscopy, MyoSure endometrial sampling. Operative findings:: She had a normal-appearing endometrium. It was erythematous possibly consistent with endometritis. There was some lush areas on the right anterior side of the uterine wall. Otherwise it appeared normal. Operative note:: She states the operating room where LMA anesthesia was found be adequate. She was prepped draped normal sterile fashion lithotomy position. A weighted speculum was placed in the vagina and the anterior lip of the cervix was grasped with a tenaculum. I was then able to dilate the cervix to approximately 7 mm. Using a small MyoSure hysteroscope I entered the uterine cavity. The findings were as previously dictated. Then using the MyoSure device I shaved portions of the endometrium. These were sent to pathology. The rest of the uterine cavity appeared atrophic and erythematous. She tolerated procedure well and was taken recovery next condition. All sponge, instrument counts were correct. Estimated blood loss was less than 10 cc. The deficit was 250 cc. Condition: stable Disposition: PACU Specimens:: Endometrial curettings Complications:: None
[2023-04-12 10:11] LABS: POC Glucose,Bedside 97 (70-110)
--- NOTE | 2023-04-19 16:54 | EXP.ANES.II ---
[facility] Anesthesia Record Part II Anesthesia Record Part II Discharge Time: 10:28 Destination: Surgical Day Care (OP Surgery) PACU nurse assessment reviewed?: Yes Patient Condition:: Good Anesthesia Complications:: None Swallowing reflex intact?: Yes Airway Patency: Patent Cyanosis?: No Blood Pressure: 114/64 SaO2: 97 Respiratory Rate: 18 Pulse Rate: 64 Temperature: 97.2 F Mental Status: Alert & Oriented Pain level:: 0 Nausea and/or vomitting:: None Intake, IV Amount: 0 Hydration: Adequate
[2023-04-19 16:55] VITALS: BP 114/64; PULSE 64; RESP 18; TEMP 36.2; O2SAT 97
== END 2023-04-12 10:47 | disposition home or self-care (01) ==
PROVIDERS: PCP Family Medicine; Visit Provider Nurse Practitioner Obstetrics & Gynecology
PROC: (CPT 58558; principal; 2023-04-12 09:00)
DX: N95.0 Postmenopausal bleeding (principal); N85.8 Other specified noninflammatory disorders of uterus; E11.9 Type 2 diabetes mellitus without complications
CPT/HCPCS: 58558; 82962; 84703; 88305; 93005; 96374; J2405

== ENCOUNTER 2023-04-21 15:20 | Outpatient (CLI) | payer MEDICARE, MEDICAID, SELFPAY ==
--- NOTE | 2023-04-21 15:29 | MM_ITS ---
PROCEDURE INFORMATION: Exam: MG Bilateral Screening 3D Mammography Exam date and time: 04/21/2023 3:25 PM Age: 52 years old Clinical indication: Screening. No family history of breast cancer. TECHNIQUE: Imaging protocol: Bilateral Screening tomosynthesis and 2D mammography including computer-aided detection (CAD) when performed. COMPARISON: 1. MG MM DIG SCREENING MAMM BI W/CAD 04/15/2022 3:22 PM 2. MG MM DIG SCREENING MAMM BI W/CAD 03/26/2021 4:24 PM 3. MG MM DIG SCREENING MAMM BI W/CAD 02/16/2020 11:09 AM 4. MG SCBI MM Dig screening mamm BI w/CAD 04/12/2018 4:16 PM FINDINGS: MAMMOGRAPHY: Breast composition: The breasts are almost entirely fatty. Mass: None. Architectural distortion: None. Calcifications: No suspicious calcifications. Asymmetric density: None. Skin thickening: None. Axillary adenopathy: None. IMPRESSION: No mammographic evidence of malignancy. Annual screening is recommended unless otherwise clinically indicated. ASSESSMENT: BI-RADS Category 1: Negative
== END 2023-04-21 23:59 ==
LOC: RAD 15:24
PROVIDERS: PCP Family Medicine; Visit Provider Family Medicine
DX: Z12.31 Encounter for screening mammogram for malignant neoplasm of breast (principal)
CPT/HCPCS: 77063; 77067

== ENCOUNTER 2023-05-26 15:13 | Outpatient (CLI) | payer MEDICARE, MEDICAID, SELFPAY ==
[2023-05-28 05:10] LABS: FSH 16.8 mIU/mL (.)
[2023-05-28 08:37] LABS: Estradiol 93.7 pg/mL (.)
== END 2023-05-26 23:59 | disposition home or self-care (01) ==
LOC: LAB 15:14
PROVIDERS: PCP Family Medicine; Visit Provider Obstetrics & Gynecology
DX: N95.0 Postmenopausal bleeding (principal)
CPT/HCPCS: 36415; 82670; 83001

== ENCOUNTER 2023-06-08 13:28 | Outpatient (CLI) | payer MEDICARE, MEDICAID, SELFPAY ==
--- NOTE | 2023-06-08 13:28 | US_ITS ---
PROCEDURE: US TRANSVAGINAL CLINICAL INDICATION: post menopausal bleeding COMPARISON: No exams were available for comparison FINDINGS: Transvaginal sonographic images of the pelvis were obtained. UTERUS: 7.6 cm x 5.2cmx 3.7 cm anteverted with a combined endometrial thickness of 5.1mm. Are several nabothian cysts in the cervix. The largest measures 0.85 cm. There appears to be an anterior fibroid measuring 1.2 cm x 1.2 cm x 1.2 cm.. LEFT OVARY: Not visualized. RIGHT OVARY: 0.85 cmx 1.6 cmx2.4cm with a volume of 1.6ml. Right ovary appears normal. Left ovary not visualized Doppler flow to right ovary is seen seen. There is no fluid in the cul-de-sac. IMPRESSION: 1. Anteverted uterus normal in shape and size. There are several small nabothian cysts in the cervix. An intramural 1.2 centimeter fibroid is seen anteriorly. 2. The endometrium is 5.1 mm. 3. The left ovary is not visualized. The right ovary appears normal. 4. No fluid in the cul-de-sac. Dictated by: Danny Huffman MD 06/08/2023 14:47 Danny Huffman MD in OV 06/08/2023 14:47
== END 2023-06-08 23:59 | disposition home or self-care (01) ==
LOC: RAD 13:28
PROVIDERS: PCP Family Medicine; Visit Provider Obstetrics & Gynecology
DX: N95.0 Postmenopausal bleeding (principal)
CPT/HCPCS: 76830

== ENCOUNTER 2023-09-15 15:16 | Outpatient (CLI) | payer MEDICARE, SELFPAY ==
--- NOTE | 2023-09-15 15:22 | XR_ITS ---
FINAL REPORT CLINICAL HISTORY: SCREENING COMPARISON: None FINDINGS: Using L1-4, the bone mineral density of the spine is 1.168 g/cm2, corresponding to T-score of 1.1 which is within normal limits. Using the left hip, the bone mineral density of the femoral neck is 0.892 g/cm2, corresponding to a T-score of 0.4 which is within normal limits. Using the right hip, the bone mineral density of the femoral neck is 0.873 g/cm2, corresponding to a T-score of 0.2 which is within normal limits. FRAX not reported because all T-scores at or above -1.0. NOTE: T-score: Standard deviation compared with peak bone mass of young adult mean. *Following the recommendations of the International Society of Bone densitometry, classification of hip BMD is based on the lower of two T-scores; total hip or femoral neck. IMPRESSION: Normal bone mineral density of the lumbar spine and hips. Reviewed, Interpreted and Dictated by Juan Ny III, MD Transcribed by Yamilet Del Rosario Authenticated and [facility]
== END 2023-09-15 23:59 | disposition home or self-care (01) ==
LOC: RAD 15:17
PROVIDERS: PCP Family Medicine; Visit Provider Physician Assistant
DX: Z13.820 Encounter for screening for osteoporosis (principal); M81.0 Age-related osteoporosis without current pathological fracture
CPT/HCPCS: 77080

== ENCOUNTER 2024-07-28 14:57 | Outpatient (CLI) | payer MEDICARE, MEDICAID, SELFPAY ==
--- NOTE | 2024-07-28 15:00 | MM_ITS ---
PROCEDURE INFORMATION: Exam: MG Bilateral Screening 3D Mammography Exam date and time: 07/28/2024 3:07 PM Age: 54 years old Clinical indication: Screening examination TECHNIQUE: Imaging protocol: Bilateral Screening tomosynthesis and 2D mammography including computer-aided detection (CAD) when performed. COMPARISON: 1. MG MM DIG SCREENING MAMM BI W/CAD 04/21/2023 3:25 PM 2. MG MM DIG SCREENING MAMM BI W/CAD 04/15/2022 3:22 PM FINDINGS: MAMMOGRAPHY: Breast composition: The breasts are almost entirely fatty. Mass: No suspicious masses. Architectural distortion: None. Calcifications: No suspicious calcifications. Asymmetric density: None. Skin thickening: None. Axillary adenopathy: None. IMPRESSION: No mammographic evidence of malignancy. Annual screening is recommended unless otherwise clinically indicated. ASSESSMENT: BI-RADS Category 1: Negative.
--- OUTSIDE RECORDS SUMMARY | 2024-07-28 15:01 | XMS_ITS | Clinical Summary ---
[facility] Address [address] [place] [address] Phone Care Team Providers Care Accounting Consultant Name Role Phone Unavailable Primary Care Provider Unavailabl e Allergies No known active allergies Medications * This document contains information received from the source organization and may not represent a complete record from that organization. No known medications Social History Tobacco Use Types Packs/Day Years Used Date Smoking Tobacco: Never Assessed Comments Unknown Sex and Gender Information Value Date Recorded Sex Assigned at Not on file Legal Sex Female 1:34 PM EDT Gender Identity Not on file Sexual Orientation Not on file Obstetrics History Last Filed Vital Signs Vital Sign Reading Time Taken Comments Blood Pressure - - Pulse - - Temperature - - Respiratory Rate - - Oxygen Saturation - - Inhaled Oxygen Concentration - - Weight 113.4 kg (250 lb) 03/26/2016 9:27 AM EST Height 165.1 cm (5' 5 ) 03/26/2016 9:27 AM EST Body Mass Index 41.6 03/26/2016 9:27 AM EST Plan of Treatment Health Maintenance Due Date Last Done Comments Wellness Exam Medicare 05/26/1971 DTaP/TDaP/Td (1 - Tdap) 05/26/1987 Hepatitis B Vaccine (1 of 3 - 19+ 3-dose series) 05/26/1987 Cervical Cancer Screening 1989 Pap Smear 1989 HPV/Pap Cotest 1998 Breast Cancer Screening 2008 Cologuard 2013 Colon Cancer Screening 2013 Colonoscopy 2013 FIT 2013 Sigmoidoscopy 2013 Virtual Colonography 2013 Pneumococcal Vaccine 50+ (1 of 1 - PCV) 2018 Zoster (1 of 2) 2018 COVID-19 Vaccine ( - 2023-2 5 season) 2023 Influenza Vaccine (Season Ended) 2024 Meningococcal B Vaccine Aged Out No l onger eligible based on patient's age to complete this topic Insurance [place]ICARE [place] [address] [place]ICA[id number]
== END 2024-07-28 23:59 | disposition home or self-care (01) ==
LOC: RAD 14:58
PROVIDERS: PCP Family Medicine; Visit Provider Family Medicine
DX: Z12.31 Encounter for screening mammogram for malignant neoplasm of breast (principal); R92.313 Mammographic fatty tissue density, bilateral breasts
CPT/HCPCS: 77063; 77067

== ENCOUNTER 2024-09-06 09:48 | Outpatient (CLI) | payer MEDICARE, MEDICAID, SELFPAY ==
--- OUTSIDE RECORDS SUMMARY | 2024-08-22 11:25 | XMS_ITS ---
[facility] [address] [facility] [address] [place] [id number] Care Team Providers Care Culturist Name Role Phone Micheal Cash Primary Care Provider REASON FOR VISIT allergy injection Medications Medication SIG (Take, Route, Frequency, Duration) Notes Start Date End Date Status Ondansetron HCl 4 MG 1 tablet Orally two times a day as needed 06/21/2024 Active QUEtiapine Fumarate 50 MG 1 tablet at be dtime Orally Once a day; Duration: 30 day(s) Active QUEtiapine Fumarate 25 MG 1 tablet at be dtime Orally Once a day; Duration: 30 day(s) Active Ferrous Sulfate 325 (65 Fe) MG 1 tablet Orally Three times a Week 07/14/2022 Active Famotidine 20 MG 1 tablet at bedtime as needed Orally Once a day; Duration: 30 day(s) Active NYSTATIN TOPICAL 183482 units/g 1 cassia applied topically 3 times a day 04/03/2022 Active Levothyroxine Sodium 88 MCG 1 tablet in the morning on an empty stomach Orally Once a day; Duration: 90 days 03/21/2024 Active ALBUTEROL 90 mcg/inh 2 puff(s) inhaled e very 6 hours Active Rosuvastatin Calcium 10 MG 1 tablet Oral ly Once a day Active Omeprazole 40 MG 1 cap(s) Orally once daily; Duration: 90 days Active Levocetirizine Dihydrochloride 5 MG 1 tablet in the evening Orally Once a day 07/17/2022 Active Vitamin D3 125 MCG (5000 UT) as directed Orally Active GLUCOMETER 1 meter test 2 times a day or as directed; Duration: 30 days 11/07/2019 Active GLUCOSE TEST STRIPS 1 test strip(s) fingerstick test 2 times a day or as directed; Duration: 30 days 11/07/2019 Active LANCETS 1 lancet(s) fingerst ick test 2 times a day or as directed; Duration: 30 days 11/07/2019 Active Folic Acid 1 MG 1 tablet Orally Once a day 07/14/2022 Active Desvenlafaxine ER 50 MG 1 tablet Orally Once a day 07/17/2022 Active Montelukast Sodium 10 MG 1 tablet Orally Once a day 07/17/2022 Active Fluticasone Propionate 50 MCG/ACT 1 spray in each nostril Nasally Once a day; Duration: 30 day(s) Active Vitamin B12 1000 MCG 1 tablet Orally Onc e a day 07/14/2022 Active Encounters Encounter Location Date Provider Diagnosis [facility] [address] [facility] [address] [place], [place] [id number] 08/22/2024 Cash Burton Allergic rhinitis, unspecified seasonality, unspecified trigger J30.9 Assessments Encounter Date Diagnosis (ICD Code) Assessment Notes Treatment Notes Treatment Clinical Notes Section Notes 08/22/2024 Allergic rhinitis, unspecified seasonality, unspecified trigger (ICD-10 - J30.9) Plan Of Treatment No Information Medications Administered Medication Instructions Date of Administration Dosage Notes allergy 08/22/2024 0.20 mL mix 1- magen allergy 08/22/2024 0.20 mL mix 2- lla allergy 08/22/2024 0.20 mL mix 3- yariel Progress Notes * Iva KOROMAdiogenesDOB:[birth year] (54 yo F)Acc No.[id number]:08/22/2024 Patient: Nanci DMUONT Provider: Esa Burton M.D. :1970 A ge:54 Y S ex:Female Date:08/22/2024 Address:[facility] [address], [place], [id number] Subjective: * Chief Complaints: * 1 . Allergy injection. * Medical History: * Medications: T aking QUEtiapine Fumarate 50 MG Tablet 1 tablet at bedtime Orally Once a day , Taking QUEtiapine Fumarate 25 MG Tablet 1 tablet at bedtime Orally Once a day , Taking Ferrous Sulfate 325 (65 Fe) MG Tablet 1 tablet Orally Three times a Week , Taking Famotidine 20 MG Tablet 1 tablet at bedtime as needed Orally Once a day , Taking Fluticasone Propionate 50 MCG/ACT Suspension 1 spray in each nostril Nasally Once a day , Taking Vitamin B12 1000 MCG Tablet Extended Release 1 tablet Orally Once a day , Taking Folic Acid 1 MG Tablet 1 tablet Orally Once a day , Taking Desvenlafaxine ER 50 MG Tablet Extended Release 24 Hour 1 tablet Orally Once a day , Taking Montelukast Sodium 10 MG Tablet 1 tablet Orally Once a day , Taking Levocetirizine Dihydrochloride 5 MG Tablet 1 tablet in the evening Orally Once a day , Taking Vitamin D3 125 MCG (5000 UT) Capsule as directed Orally , Taking GLUCOMETER 1 meter test 2 times a day or as directed , Taking GLUCOSE TEST STRIPS 1 test strip(s) fingerstick test 2 times a day or as directed , Taking LANCETS 1 lancet(s) fingerstick test 2 times a day or as directed , Taking ALBUTEROL 90 mcg/inh aerosol 2 puff(s) inhaled every 6 hours , Taking Rosuvastatin Calcium 10 MG Tablet 1 tablet Orally Once a day , Taking Omeprazole 40 MG Capsule Delayed Release 1 cap(s) Orally once daily , Taking NYSTATIN TOPICAL 202508 units/g powder 1 cassia applied topically 3 times a day , Taking Levothyroxine Sodium 88 MCG Tablet 1 tablet in the morning on an empty stomach Orally Once a day , Taking Ondansetron HCl 4 MG Tablet 1 tablet Orally two times a day as needed , Medication List reviewed and reconciled with the patient Objective: * Vitals: Assessment: * Assessment: 1. A llergic rhinitis, unspecified seasonality, unspecified trigger - J30.9 (Primary) ? Plan: * Treatment: * Therapeutic Injections: allergy : 0.20 mL (Route: Subcutaneous) given by CLAUDIA Dang on subcutaneus (Allergic rhinitis, unspecified seasonality, unspecified trigger) allergy : 0.20 mL (Route: Subcutaneous) given by CLAUDIA Dang on subcutaneus (Allergic rhinitis, unspecified seasonality, unspecified trigger) allergy : 0.20 mL (Route: Subcutaneous) given by CLAUDIA Dang on subcutaneus (Allergic rhinitis, unspecified seasonality, unspecified trigger) * Procedure Codes: 9 5117 IMMUNOTHERAPY INJECTIONS * Images: Billing Information: * Visit Code: * Procedure Codes: 05368 IMMUNOTHERAPY INJECTIONS. * Electronic signature of Treasure Burton MD on 09/06/2024 at 09:51 AM EDT Sign off status: Pending * Provider: Esa Burton M.D. Date: 08/22/2024 Generated for Ramandeep diggs/Nubia/Juan Carlos on: 0 09/06/2024 09:51 AM EDT
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
--- OUTSIDE RECORDS SUMMARY | 2024-09-06 09:52 | XMS_ITS | Clinical Summary ---
Author Organization [facility] [place] Address [address] [place] [address] Phone Care Team Providers Care Mold Stripper Name Role Phone Unavailable Primary Care Provider [...] - 2023-2 5 season) 2023 Influenza Vaccine (#1) 2024 Meningococcal B Vaccine Aged Out No l onger eligible based on patient's age to complete this topic Insurance [place]ICARE [place] PART A [place] [address] MEDICAID [id number]
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
--- NOTE | 2024-09-06 09:56 | XR_ITS ---
FINAL REPORT CLINICAL HISTORY: Right great toe injury COMPARISON: None FINDINGS: AP, oblique and lateral views of the right foot were obtained. There is no acute fracture or dislocation. The joint spaces are preserved. Soft tissues are unremarkable. IMPRESSION: No acute osseous abnormality of the right foot. Reviewed, Interpreted and Dictated by Lupe Perera MD Transcribed by Nicolette Stanton Authenticated and [facility]
== END 2024-09-06 23:59 | disposition home or self-care (01) ==
LOC: RAD 09:49
PROVIDERS: PCP Family Medicine; Visit Provider Nurse Practitioner
DX: S99.921A Unspecified injury of right foot, initial encounter (principal)
CPT/HCPCS: 73630

== ENCOUNTER 2024-12-19 08:02 | Day surgery (SDC) | payer MEDICARE, MEDICAID, SELFPAY ==
--- NOTE | 2024-12-18 11:06 | SUR.PREOP ---
LEFT MESSAGE W/ CALL BACK # @ THIS TIME
[2024-12-18 14:46] VITALS: BMI 44.1
[2024-12-19 08:38] VITALS: BP 153/72; PULSE 106; RESP 16; TEMP 36.3; O2SAT 98
[2024-12-19] MEDS: LACTATED RINGERS 1000ML 1,000 ML 50 ML IV (08:48)
[2024-12-19 08:55] LABS: POC Glucose,Bedside 107 gm/dL (70-110)
--- NOTE | 2024-12-19 09:16 | SUR.PREOP ---
0900-Dr. Hartman in to see patient. Pt w/poor bowel prep to be referred to .
== END 2024-12-19 09:10 | disposition home or self-care (01) ==
LOC: OUTP 08:04
PROVIDERS: PCP Family Medicine; Visit Provider Surgery
PROC: 0DJD8ZZ Inspection of Lower Intestinal Tract, Via Natural or Artificial Opening Endoscopic (ICD-10-PCS; principal; 2024-12-19 09:15)
DX: Z53.8 Procedure and treatment not carried out for other reasons (principal)
CPT/HCPCS: 82962; J7120